=== PATIENT | male | born 1975 | race Caucasian/White ===

== ENCOUNTER 2020-01-07 10:49 | Emergency (ER) | payer OTHER, SELFPAY ==
[2020-01-07] VITALS (9 sets, daily range): BP systolic 121–158; BP diastolic 78–93; PULSE 53–70; RESP 16; TEMP 36.5; O2SAT 100; BMI 21.7
--- NOTE | 2020-01-07 11:38 | XR_ITS ---
EXAMINATION: XR CHEST CLINICAL INFORMATION: Dizziness COMPARISON: Chest x-ray March 2019 TECHNIQUE: Frontal view of the chest was obtained. FINDINGS: No significant abnormality is noted involving the heart, lungs, mediastinum, bony thorax or soft tissues. XR/XR chest 1V IMPRESSION: Unremarkable examination.
--- NOTE | 2020-01-07 11:38 | ECG_ITS ---
Test Reason : DIZZINESS Blood Pressure : / mmHG Vent. Rate : 062 BPM Atrial Rate : 062 BPM P-R Int : 162 ms QRS Dur : 084 ms QT Int : 430 ms P-R-T Axes : 083 009 036 degrees QTc Int : 436 ms Sinus rhythm with frequent Premature ventricular complexes Abnormal ECG When compared with ECG of 06-APR-2019 07:39, Premature ventricular complexes are now Present Heart rate has decreased Referred By: Esther Fong Electronically Signed By:MAXIME CALDERA MD
--- NOTE | 2020-01-07 11:39 | CT_ITS ---
EXAMINATION: CT HEAD WITHOUT CONTRAST CLINICAL INFORMATION: Dizziness COMPARISON: None TECHNIQUE: Contiguous axial imaging was performed from the skull base to vertex without intravenous administration of contrast. This CT examination was performed using dose optimization techniques as appropriate, variously including the following: *Automated exposure control *Adjustment of mA and/or kV according to patient size (this includes techniques or standardized protocols for targeted exams where dose is matched to indication/reason for exam; i.e. extremities or head) *Use of iterative reconstruction technique DLP: 847 mGy-cm FINDINGS: There is no evidence of acute intracranial hemorrhage or territorial infarction. No abnormal mass effect or midline shift is seen. Gregorio to white matter differentiation is well preserved. No extra-axial fluid collections are identified. The ventricles are normal in size. There is no abnormal attenuation within the brain parenchyma. The osseous structures and soft tissues are normal. The mastoid air cells and visualized portions of the paranasal sinuses are well aerated. CT/CT head/brain wo con IMPRESSION: No acute intracranial pathology.
[2020-01-07 11:52] LABS: Glucose, Whole Blood 99 mg/dL (60-115)
--- NOTE | 2020-01-07 11:55 | PC.NURSE ---
SEEN BY PROVIDER. LABS, POC AND UA DONE. EKG DONE. OFF UNIT TO CT AND RAD
[2020-01-07 11:58] LABS: MANUAL DIFF FLAG NO
[2020-01-07 12:00] LABS: Basophils Percent Auto 0.3 % (0-2); Eosinophils Absolute Auto 0.1 X10*3/uL (0.0-0.4); Eosinophils Percent Auto 0.9 % (0-4); Hematocrit 43.9 % (42-52); Hemoglobin 14.8 g/dl (14.0-18.0); Imm Gran Abs Auto 0.02 X10*3/uL (0.00-0.03); Imm Gran Pct Auto 0.2 % (0.0-0.4); Lymphocytes Absolute Auto 1.5 X10*3/uL (1.2-4.9); Mean Corpuscular HGB Conc 33.7 g/dl (31.0-36.0); Mean Corpuscular Hemoglobin 31.8 pg (27.0-33.0); Mean Corpuscular Volume 94.2 fL (80-98); Mean Platelet Volume 9.8 fL (9.4-12.4); Monocytes Absolute Auto 0.5 X10*3/uL (0.1-1.2); Monocytes Percent Auto 5.8 % (2-11); Neutrophils Absolute Auto 6.6 X10*3/uL (2.0-8.3); Neutrophils Percent Auto 75.8 % (45-73); Platelet Count 189 X10*3/uL (160-400); Red Blood Count 4.66 X10*6/uL (4.60-5.80); Red Cell Distribution Width 12.9 % (11.0-16.0); White Blood Count 8.7 X10*3/uL (4.8-10.8)
[2020-01-07 12:01] LABS: Glucose Urine UA NEG (NEG); Leukocyte Esterase Urine NEG (NEG); Nitrite Urine NEG (NEG); Urine Blood NEG (NEG); Urine Ketones NEG (NEG); Urine Protein NEG (NEG-TRACE)
[2020-01-07 12:02] LABS: Appearance Urine CLEAR; Color Urine STRAW
[2020-01-07] MEDS: 0.9 % Sodium Chloride 1,000 ML 999 ML IVCONT (12:09)
[2020-01-07] MEDS: Meclizine HCl 25 MG TABLET 50 MG PO (12:09)
--- NOTE | 2020-01-07 12:10 | PC.NURSE ---
IV EST 20 G L AC. 1 LITER NS UP. MECLIZINE PER ORDERS.
[2020-01-07 12:18] LABS: Prothrombin Time 11.7 SEC (10.8-13.0)
[2020-01-07 12:27] LABS: Troponin-I High Sensitivity < 3.5 ng/L (<3.5-35.0)
--- NOTE | 2020-01-07 12:32 | ED.DIZZY ---
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 He reports he had to hold on to the wall so he wouldn't fall. Reports the dizziness is worse with changing in position. Reports the dizziness is somewhat improved with sitting down not moving. Denies recent head injury. Denies any other complaints or concerns at this time. Denies recent alcohol or drug usage. Related Data Allergies Allergy/AdvReac Type Severity Reaction Status Date / Time No Known Allergies Allergy Verified 01/07/20 11:05 Review of Systems Review of Systems: Constitutional : No Fever, No Chills, No Night Sweats, No Fatigue, No Malaise ENT/Mouth : No Ear Pain, No Nasal Congestion, No Sinus Pain, No sore throat, No Rhinorrhea Eyes: No Eye Pain, No Swelling, No Redness, No Foreign Body, No Discharge, No Vision Changes Cardiovascular : No Chest Pain, No SOB, No Dyspnea on Exertion, No Orthopnea, No Palpitations Respiratory : No Cough, No Sputum, No Wheezing, No Dyspnea Gastrointestinal : No Nausea, No Vomiting, No Diarrhea, No Constipation, No abdominal Pain, No Hematochezia, No Melena Genitourinary : No Dysuria, No Urinary Frequency, No Urinary Incontinence, No Urgency, No Flank Pain Musculoskeletal : No joint pain, No Myalgias Skin : No lacerations Neuro : +Dizziness, No Numbness, No Paresthesias, No Loss of Consciousness, No Headache Yes all other systems are reviewed and are negative [facility] Past Medical History Attestation statement: The following information was validated with the patient. Medical History Anxiety Social History Social History Smoking Status: Current every day smoker Use of substances other than those prescribed or required for medical reasons: No Advance Directives: No Advance Directives Information Provided: Yes Physical Exam Vital Signs: Vital Signs: Last Vital Signs Temp 97.7 F 01/07/20 11:10 Pulse 68 01/07/20 14:19 Resp 16 01/07/20 11:10 BP 121/84 01/07/20 14:19 Pulse Ox 100 01/07/20 11:10 Body Mass Index 21.7 Vital signs have been reviewed as normal and appeared to be correct. Blood pressure normal. Heart rate normal. Respiration rate normal. Temperature normal. Oxygen saturation normal. Appearance: Alert. Oriented X3. No acute distress. Head: Normal external exam. Normocephalic. Atraumatic. Able to rotate head bilaterally. Eyes: PERRLA. EOMI. No nystagmus noted. Conjunctiva and sclera normal. Eyelids normal. Corneal reflex normal. ENT: EAC normal. TM's Normal. Hearing normal. Pharynx normal. Uvula midline. tongue midline. Moist mucous membranes. No trismus noted. No drooling noted. No muffled voice noted. Neck: Normal inspection. Neck supple. FROM. No adenopathy. Thyroid Normal. No meningeal signs. No neck mass noted. CVS: Normal heart rate and rhythm. Heart sound normal. No murmurs noted. Pulses normal throughout. Respiratory: No respiratory distress. Painless inspiration. Breath sounds normal. No wheezes/rales/rhonchi noted. Chest nontender. No accessory muscle usage noted or decreased air movement noted. Abdomen: Soft and nontender. Bowel sounds normal in all 4 quadrants. No distention noted. No organomegaly noted. No visible injury noted. Back: No CVA tenderness. Full range of motion noted. Skin: Skin warm and dry. Normal skin color. Normal skin turgor. No rashes/lesions/lacerations noted. Extremities: No lower extremity edema. Extremities exhibit normal range of motion. Extremities nontender. Able to shrug shoulders bilaterally and keep up against resistance. Neuro: Oriented X 3. No motor deficit. No sensory deficit. Reflexes normal. Moving all extremities. No focal motor deficits. Cranial nerves II-XI intact bilaterally. Facial strength normal. Normal cognition. Speech normal. Gait normal. Strength 5/5 throughout. No pronator drift. No tremor noted. No fasciculations noted. Muscle tone normal throughout. No asterixis noted. Pkjjxk-dk-wlex test normal. Heel to reagan test normal. Tandem gait normal. Does not sway with eyes open. Romberg test negative. Rapid alternating movement upper extremity normal. Rapid alternating movement lower extremity normal. Hand drop from overhead-Mrs. face. No rigidity noted. NIHSS score 0. 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 The dizziness is worse with changing in position. Reports the dizziness is somewhat improved with sitting down not moving. - on exam patient is alert and oriented x 3 not in any acute distress. Vital signs are stable within normal limits. No acute neuro deficits noted. Patient has normal steady gait. NIHSS score 0. TPA not indicated at this time as patient due to symptoms are mild and non disabling. - Concern for CVA vs electrolyte abnormality vs orthostatic hypotension. - Plan: Labs, Orthostatic vitals, UA, EKG, CXR, CT scan of brain. Provide IVF's and 50 mg of meclizine and re-evaluate. Reevaluation(s) Reevaluation #1: - Labs WNL. CXR WL. CT scan of brain WNL. EKG normal sinus rhythm no acute ischemic changes. - orthostatic and vitals patient had a drop from 158/92 to 125/87 and patient reported dizziness therefore positive orthostatics. Patient received 1 L of IV fluids. Repeat orthostatics are now within normal limits and patient reports his dizziness has now resolved. Will DC home with instructions return if any new or worsening symptoms to follow-up with primary care provider. Patient understands agrees the plan. Time: 13:37 [facility] - Dizziness Medical Records Attestation: I reviewed the patient's medical records. Lab Data Attestation: I reviewed the patient's lab results. Result diagrams: 01/07/20 11:49 01/07/20 11:48 Labs: Lab Results 01/07/20 01/07/20 01/07/20 Range/Units 11:39 11:39 11:48 WBC (4.8-10.8) X10*3/uL RBC (4.60-5.80) X10*6/uL Hgb (14.0-18.0) g/dl Hct (42-52) % MCV (80-98) fL MCH (27.0-33.0) pg MCHC (31.0-36.0) g/dl RDW (11.0-16.0) % Plt Count (160-400) X10*3/uL MPV (9.4-12.4) fL Immature Gran % (Auto) (0.0-0.4) % Neut % (Auto) (45-73) % Lymph % (Auto) (20-40) % [place] % (Auto) (2-11) % Eos % (Auto) (0-4) % Baso % (Auto) (0-2) % Lymph # (Auto) (1.2-4.9) X10*3/uL [place] # (Auto) (0.1-1.2) X10*3/uL Eos # (Auto) (0.0-0.4) X10*3/uL Baso # (Auto) (0.0-0.2) X10*3/uL Abs Immat Gran (auto) (0.00-0.03) X10*3/uL Absolute Neuts (auto) (2.0-8.3) X10*3/uL Absolute Nucleated RBC (0.0-0.012) X10*3/uL Nucleated RBC % (auto) (0.0-0.2) /100WBC PT 11.7 (10.8-13.0) SEC INR 1.0 (0.9-1.1) Sodium (135-145) mmol/L Potassium (3.3-5.1) mmol/l Chloride (96-108) mmol/L Carbon Dioxide (22-29) mmol/L Anion Gap (12-20) BUN (9-16) mg/dL Creatinine (0.5-1.4) mg/dL Estim Creat Clear Calc Estimated GFR POC Glucose 99 (60-115) mg/dL Random Glucose (60-115) mg/dL Calcium (8.4-10.2) mg/dL Magnesium (1.6-2.6) mg/dL Total Bilirubin (0.0-1.0) mg/dL Direct Bilirubin (0.0-0.5) mg/dL AST (5-37) U/L ALT (0-40) U/L Alkaline Phosphatase (39-117) U/L Troponin I High Sens (<3.5-35.0) ng/L Total Protein (6.5-8.0) g/dL Albumin (3.5-5.0) g/dL Urine Color STRAW Urine Appearance CLEAR Urine pH 7.0 (5.0-8.0) Ur Specific Harris 1.020 (1.005-1.025) Urine Protein NEG (NEG-TRACE) MG/DL Urine Glucose (UA) NEG (NEG) MG/DL Urine Ketones NEG (NEG) MG/DL Urine Blood NEG (NEG) Urine Nitrite NEG (NEG) Ur Leukocyte Esterase NEG (NEG) 01/07/20 01/07/20 01/07/20 Range/Units 11:48 11:48 11:49 WBC 8.7 (4.8-10.8) X10*3/uL RBC 4.66 (4.60-5.80) X10*6/uL Hgb 14.8 (14.0-18.0) g/dl Hct 43.9 (42-52) % MCV 94.2 (80-98) fL MCH 31.8 (27.0-33.0) pg MCHC 33.7 (31.0-36.0) g/dl RDW 12.9 (11.0-16.0) % Plt Count 189 (160-400) X10*3/uL MPV 9.8 (9.4-12.4) fL Immature Gran % (Auto) 0.2 (0.0-0.4) % Neut % (Auto) 75.8 H (45-73) % Lymph % (Auto) 17.0 L (20-40) % [place] % (Auto) 5.8 (2-11) % Eos % (Auto) 0.9 (0-4) % Baso % (Auto) 0.3 (0-2) % Lymph # (Auto) 1.5 (1.2-4.9) X10*3/uL [place] # (Auto) 0.5 (0.1-1.2) X10*3/uL Eos # (Auto) 0.1 (0.0-0.4) X10*3/uL Baso # (Auto) 0.0 (0.0-0.2) X10*3/uL Abs Immat Gran (auto) 0.02 (0.00-0.03) X10*3/uL Absolute Neuts (auto) 6.6 (2.0-8.3) X10*3/uL Absolute Nucleated RBC 0.000 (0.0-0.012) X10*3/uL Nucleated RBC % (auto) 0.0 (0.0-0.2) /100WBC PT (10.8-13.0) SEC INR (0.9-1.1) Sodium 139 (135-145) mmol/L Potassium 4.3 (3.3-5.1) mmol/l Chloride 106 (96-108) mmol/L Carbon Dioxide 29 (22-29) mmol/L Anion Gap 8 L (12-20) BUN 13 (9-16) mg/dL Creatinine 0.82 (0.5-1.4) mg/dL Estim Creat Clear Calc 115.5 Estimated GFR > 60 POC Glucose (60-115) mg/dL Random Glucose 88 (60-115) mg/dL Calcium 8.8 (8.4-10.2) mg/dL Magnesium 2.1 (1.6-2.6) mg/dL Total Bilirubin 0.9 (0.0-1.0) mg/dL Direct Bilirubin 0.4 (0.0-0.5) mg/dL AST 15 (5-37) U/L ALT 15 (0-40) U/L Alkaline Phosphatase 122 H (39-117) U/L Troponin I High Sens < 3.5 (<3.5-35.0) ng/L Total Protein 6.3 L (6.5-8.0) g/dL Albumin 4.2 (3.5-5.0) g/dL Urine Color Urine Appearance Urine pH (5.0-8.0) Ur Specific Harris (1.005-1.025) Urine Protein (NEG-TRACE) MG/DL Urine Glucose (UA) (NEG) MG/DL Urine Ketones (NEG) MG/DL Urine Blood (NEG) Urine Nitrite (NEG) Ur Leukocyte Esterase (NEG) Imaging Data Chest x-ray: Attestation: I personally reviewed and interpreted this imaging study as follows: Radiologist's impression: FINDINGS: No significant abnormality is noted involving the heart, lungs, mediastinum, bony thorax or soft tissues. XR/XR chest 1V IMPRESSION: Unremarkable examination. CT scan - head: Attestation: I personally reviewed and interpreted this imaging study as follows: My impression: FINDINGS: There is no evidence of acute intracranial hemorrhage or territorial infarction. No abnormal mass effect or midline shift is seen. Gregorio to white matter differentiation is well preserved. No extra-axial fluid collections are identified. The ventricles are normal in size. There is no abnormal attenuation within the brain parenchyma. The osseous structures and soft tissues are normal. The mastoid air cells and visualized portions of the paranasal sinuses are well aerated. CT/CT head/brain wo con IMPRESSION: No acute intracranial pathology. ECG Data Attestation: I personally reviewed and interpreted this ECG as follows: ECG interpretation date: 01/07/20 ECG interpretation time: 11:42 Interpretation: Normal sinus rhythm with a ventricular rate of 62 with frequent PVCs noted with a normal [place] interval normal QRS duration normal QT/QTC interval. No acute ischemic changes. Similar when compared to prior March, Discharge Plan Discharge Clinical Impression: Orthostatic hypotension Patient Disposition: Home, Self-Care Instructions: Hypotension (ED) Referrals: Physician,Unknown [Primary Care Provider] - 2 days (Your primary care provider if you do not have 1 we provided you a sheet with a list of providers you contact) Stand Alone Forms: Work/School Release Print Language: Sami
[2020-01-07 12:33] LABS: Alanine Aminotransferase 15 U/L (0-40); Albumin Level 4.2 g/dL (3.5-5.0); Alkaline Phosphatase 122 U/L (39-117); Anion Gap 8 (12-20); Aspartate Amino Transferase 15 U/L (5-37); Bilirubin Direct 0.4 mg/dL (0.0-0.5); Bilirubin Total 0.9 mg/dL (0.0-1.0); Blood Urea Nitrogen 13 mg/dL (9-16); Calcium 8.8 mg/dL (8.4-10.2); Carbon Dioxide 29 mmol/L (22-29); Chloride 106 mmol/L (96-108); Creatinine Clr Calc Pharmacy 115.5; Estimated Glomerular Filt Rate > 60; Glucose Random 88 mg/dL (60-115); Magnesium 2.1 mg/dL (1.6-2.6); Potassium 4.3 mmol/l (3.3-5.1); Sodium 139 mmol/L (135-145); Total Protein 6.3 g/dL (6.5-8.0)
--- NOTE | 2020-01-07 13:22 | PC.NURSE ---
RESTING IN NAD. AWAITING DISPO. VITALS UPDATED
== END 2020-01-07 14:59 | disposition home or self-care (01) ==
PROVIDERS: Physician Assistant Medical; Emergency Provider Emergency Medicine
DX: I95.1 Orthostatic hypotension (principal); R42 Dizziness and giddiness; F41.1 Generalized anxiety disorder; F43.0 Acute stress reaction; Z71.6 Tobacco abuse counseling; F17.200 Nicotine dependence, unspecified, uncomplicated
CPT/HCPCS: 36415; 70450; 71045; 80048; 80076; 81003; 82947; 83735; 84484; 85025; 85610; 93005; 96360; 99284

== ENCOUNTER 2021-05-27 12:13 | Emergency (ER) | payer OTHER, SELFPAY ==
[2021-05-27 12:26] VITALS: BP 140/88; PULSE 105; RESP 20; TEMP 37.1; O2SAT 100; BMI 25.1
--- NOTE | 2021-05-27 12:33 | ED_ITS ---
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 Mode of arrival: ambulatory Limitations: no limitations History of Present Illness MD elicited complaint: nausea, vomiting and diarrhea Onset (ago): hour(s) (3am today) Description of vomiting: food contents and watery Description of diarrhea: watery Associated nausea: Yes Associated abdominal pain: Yes Location of pain: diffuse Radiation: diffuse Pain consistency: intermittent Severity: moderate Quality: cramping Exacerbating factors: eating Relieving factors: none Context: possible food poisoning (ate [employer] last night) Associated symptoms: fever/chills, loss of appetite, malaise and nausea/vomiting Related Data Previous Rx's Medication Instructions Recorded ondansetron 4 mg disintegrating 4 mg PO Q8H PRN #20 tab 05/27/21 tablet Allergies Allergy/AdvReac Type Severity Reaction Status Date / Time No Known Allergies Allergy Verified 01/07/20 11:05 Review of Systems Review of Systems: Constitutional : No Weight loss, pos Fever, pos Chills ENT/Mouth : No sore throat, No Rhinorrhea Eyes: No Swelling, No Redness Cardiovascular : No Chest Pain, No SOB, NoEdema Respiratory : No Cough, No Sputum, No Wheezing Gastrointestinal : Positive Nausea, Positive Vomiting, positive Diarrhea, positive abdominal Pain, No Hematochezia, No Melena Genitourinary : No Dysuria, No Urinary Frequency, No Hematuria, No Urgency Musculoskeletal : No joint pain, No Myalgias, No Joint Swelling Skin : No Skin Lesions, No rash Neuro : No Weakness, No Numbness, No Dizziness, No Headache Psych : No Anxiety/Panic, No Depression Heme/Lymph: No Bruising, No Lymphadenopathy Endocrine : No Polyuria, No Polydipsia All other systems reviewed and are negative. Gastrointestinal: Gastrointestinal: Reports nausea PMFSH Past Medical History Attestation statement: The following information was validated with the patient. Medical History Anxiety Social History Social History (Updated 05/27/21 @ 12:39 by Coni Oneil DO) Patient Tobacco Use Status: Never used Tobacco Advance Directives: No Advance Directives Information Provided: No Physical Exam Vital Signs: Vital Signs: Last Vital Signs Temp 98.8 F 05/27/21 12:26 Pulse 105 H 05/27/21 12:26 Resp 20 05/27/21 12:26 BP 140/88 H 05/27/21 12:26 Pulse Ox 100 05/27/21 12:26 BMI result Body Mass Index 25.1 Appearance: Alert. Oriented X3. No acute distress. Eyes: Pupils equal, round and reactive to light. ENT: Pharynx mild dry MM Neck: Normal inspection. Neck supple. CVS: Normal heart rate and rhythm. Pulses normal. Respiratory: No respiratory distress. Breath sounds normal. Abdomen: Soft and non-tender. no rebound or guarding Skin: Skin warm and dry. Normal skin color. Normal skin turgor. Extremities: No lower extremity edema. No calf ttp Neuro: Oriented X 3. No motor deficit. No sensory deficit. Course Course Course Narrative: feels better, able to tolerate PO, stable for DC, labs stable MDM - Nausea/Vomiting/Diarrhea MDM Narrative Medical decision making narrative: 46 yo male with hx of anxiety reports eating [employer] last night then woke up around 3am with abdominal cramps n/v and diarrhea. He feels chills and feverish as well as weak. His abdominal exam is benign no localized ttp. Will obtain labs, IVF x 2L, IV medications - suspect food poisoning vs viral syndrome. Dispo per results and findings. Lab Data Result diagrams: 05/27/21 13:13 05/27/21 13:13 Labs: Lab Results 05/27/21 05/27/21 05/27/21 Range/Units 13:13 13:13 13:13 WBC 8.9 (4.8-10.8) X10*3/uL RBC 4.88 (4.60-5.80) X10*6/uL Hgb 15.5 (14.0-18.0) g/dl Hct 45.9 (42.0-52.0) % MCV 94.1 (80.0-98.0) fL MCH 31.8 (27.0-33.0) pg MCHC 33.8 (31.0-36.0) g/dl RDW 13.2 (11.0-16.0) % Plt Count 167 (160-400) X10*3/uL MPV 10.0 (9.4-12.4) fL Immature Gran % (Auto) 0.3 (0.0-0.4) % Neut % (Auto) 87.5 H (45-73) % Lymph % (Auto) 5.4 L (20-40) % [place] % (Auto) 5.4 (2-11) % Eos % (Auto) 1.2 (0-4) % Baso % (Auto) 0.2 (0-2) % Lymph # (Auto) 0.5 L (1.2-4.9) X10*3/uL [place] # (Auto) 0.5 (0.1-1.2) X10*3/uL Eos # (Auto) 0.1 (0.0-0.4) X10*3/uL Baso # (Auto) 0.0 (0.0-0.2) X10*3/uL Abs Immat Gran (auto) 0.03 (0.00-0.03) X10*3/uL Absolute Neuts (auto) 7.8 (2.0-8.3) x10*3/uL Absolute Nucleated RBC 0.000 (0.0-0.012) X10*3/uL Nucleated RBC % (auto) 0.0 (0.0-0.2) /100WBC Sodium 139 (135-145) mmol/L Potassium 4.4 (3.3-5.1) mmol/L Chloride 104 (96-108) mmol/L Carbon Dioxide 27 (22-29) mmol/L Anion Gap 12 (12-20) BUN 19 H (9-16) mg/dL Creatinine 0.75 (0.5-1.4) mg/dL Estim Creat Clear Calc 128.2 Estimated GFR > 60 Random Glucose 86 (60-115) mg/dL Calcium 8.9 (8.4-10.2) mg/dL Magnesium 2.0 (1.6-2.6) mg/dL Total Bilirubin 1.4 H (0.0-1.0) mg/dL Direct Bilirubin 0.6 H (0.0-0.5) mg/dL AST 14 (5-37) U/L ALT 13 (0-40) U/L Alkaline Phosphatase 120 H (39-117) U/L Total Protein 6.3 L (6.5-8.0) g/dL Albumin 4.1 (3.5-5.0) g/dL Lipase 40 (8-78) U/L COVID-19 (HANG) Negative (Negative) COVID-19 Clin Com See Note Influenza Type A (DEVEN) (Negative) Influenza Type B (DEVEN) (Negative) Influenza A & B Note 05/27/21 Range/Units 13:13 WBC (4.8-10.8) X10*3/uL RBC (4.60-5.80) X10*6/uL Hgb (14.0-18.0) g/dl Hct (42.0-52.0) % MCV (80.0-98.0) fL MCH (27.0-33.0) pg MCHC (31.0-36.0) g/dl RDW (11.0-16.0) % Plt Count (160-400) X10*3/uL MPV (9.4-12.4) fL Immature Gran % (Auto) (0.0-0.4) % Neut % (Auto) (45-73) % Lymph % (Auto) (20-40) % [place] % (Auto) (2-11) % Eos % (Auto) (0-4) % Baso % (Auto) (0-2) % Lymph # (Auto) (1.2-4.9) X10*3/uL [place] # (Auto) (0.1-1.2) X10*3/uL Eos # (Auto) (0.0-0.4) X10*3/uL Baso # (Auto) (0.0-0.2) X10*3/uL Abs Immat Gran (auto) (0.00-0.03) X10*3/uL Absolute Neuts (auto) (2.0-8.3) x10*3/uL Absolute Nucleated RBC (0.0-0.012) X10*3/uL Nucleated RBC % (auto) (0.0-0.2) /100WBC Sodium (135-145) mmol/L Potassium (3.3-5.1) mmol/L Chloride (96-108) mmol/L Carbon Dioxide (22-29) mmol/L Anion Gap (12-20) BUN (9-16) mg/dL Creatinine (0.5-1.4) mg/dL Estim Creat Clear Calc Estimated GFR Random Glucose (60-115) mg/dL Calcium (8.4-10.2) mg/dL Magnesium (1.6-2.6) mg/dL Total Bilirubin (0.0-1.0) mg/dL Direct Bilirubin (0.0-0.5) mg/dL AST (5-37) U/L ALT (0-40) U/L Alkaline Phosphatase (39-117) U/L Total Protein (6.5-8.0) g/dL Albumin (3.5-5.0) g/dL Lipase (8-78) U/L COVID-19 (HANG) (Negative) COVID-19 Clin Com Influenza Type A (DEVEN) Negative (Negative) Influenza Type B (DEVEN) Negative (Negative) Influenza A & B Note See Note Discharge Plan Discharge Clinical Impression: Vomiting Qualifiers: Vomiting type: unspecified Nausea presence: with nausea Qualified Code(s): R11.2 - Nausea with vomiting, unspecified Diarrhea Qualifiers: Diarrhea type: unspecified type Qualified Code(s): R19.7 - Diarrhea, uns pecified Abdominal pain Qualifiers: Abdominal location: generalized Qualified Code(s): R10.84 - Generalized abdominal pain Patient Disposition: Home, Self-Care Instructions: Acute Nausea and Vomiting (ED), Acute Diarrhea (ED), Abdominal Pain (ED) Additional Instructions: return to ED for any worsening symptoms or concerns Prescriptions: New ondansetron 4 mg tablet,disintegrating 4 mg PO Q8H PRN (Reason: nausea and vomiting) Qty: 20 0RF Stand Alone Forms: Work/School Release Print Language: Surinamese
[2021-05-27 13:19] LABS: MANUAL DIFF FLAG NO
[2021-05-27 13:25] LABS: Basophils Percent Auto 0.2 % (0-2); Eosinophils Absolute Auto 0.1 X10*3/uL (0.0-0.4); Eosinophils Percent Auto 1.2 % (0-4); Hematocrit 45.9 % (42.0-52.0); Hemoglobin 15.5 g/dl (14.0-18.0); Imm Gran Abs Auto 0.03 X10*3/uL (0.00-0.03); Imm Gran Pct Auto 0.3 % (0.0-0.4); Lymphocytes Absolute Auto 0.5 X10*3/uL (1.2-4.9); Lymphocytes Percent Auto 5.4 % (20-40); Mean Corpuscular HGB Conc 33.8 g/dl (31.0-36.0); Mean Corpuscular Hemoglobin 31.8 pg (27.0-33.0); Mean Corpuscular Volume 94.1 fL (80.0-98.0); Monocytes Absolute Auto 0.5 X10*3/uL (0.1-1.2); Monocytes Percent Auto 5.4 % (2-11); Neutrophils Absolute Auto 7.8 x10*3/uL (2.0-8.3); Neutrophils Percent Auto 87.5 % (45-73); Platelet Count 167 X10*3/uL (160-400); Red Blood Count 4.88 X10*6/uL (4.60-5.80); Red Cell Distribution Width 13.2 % (11.0-16.0); White Blood Count 8.9 X10*3/uL (4.8-10.8)
[2021-05-27] MEDS: Famotidine/PF 20 MG/2 ML VIAL IVPUSH (13:25)
[2021-05-27] MEDS: 0.9 % Sodium Chloride 1,000 ML 999 ML IVCONT (13:25)
[2021-05-27] MEDS: Ketorolac Tromethamine 30 MG/ML VIAL IVPUSH (13:25)
[2021-05-27] MEDS: ondansetron HCL 4 MG/2 ML VIAL IVPUSH (13:25)
[2021-05-27 13:36] LABS: COVID-19 Test Negative (Negative); IDNOW Serial# 16C4AD1C; Influenza A Negative (Negative); Influenza B2 Negative (Negative)
[2021-05-27 13:50] LABS: Alanine Aminotransferase 13 U/L (0-40); Albumin Level 4.1 g/dL (3.5-5.0); Alkaline Phosphatase 120 U/L (39-117); Anion Gap 12 (12-20); Aspartate Amino Transferase 14 U/L (5-37); Bilirubin Direct 0.6 mg/dL (0.0-0.5); Bilirubin Total 1.4 mg/dL (0.0-1.0); Blood Urea Nitrogen 19 mg/dL (9-16); Calcium 8.9 mg/dL (8.4-10.2); Carbon Dioxide 27 mmol/L (22-29); Chloride 104 mmol/L (96-108); Creatinine Clr Calc Pharmacy 128.2; Estimated Glomerular Filt Rate > 60; Glucose Random 86 mg/dL (60-115); Lipase 40 U/L (8-78); Potassium 4.4 mmol/L (3.3-5.1); Sodium 139 mmol/L (135-145); Total Protein 6.3 g/dL (6.5-8.0)
[2021-05-27 15:00] VITALS: BP 117/85; PULSE 77; RESP 18; O2SAT 98
== END 2021-05-27 15:40 | disposition home or self-care (01) ==
PROVIDERS: Emergency Provider Emergency Medicine
DX: R10.84 Generalized abdominal pain (principal); R11.2 Nausea with vomiting, unspecified; R19.7 Diarrhea, unspecified; Z20.822 Contact with and (suspected) exposure to COVID-19
CPT/HCPCS: 80048; 80076; 83690; 83735; 85025; 87502; 87635; 96361; 96374; 96375; 99284; J1885; J2405

== ENCOUNTER 2022-07-31 08:56 | Emergency (ER) | payer MEDICAID, SELFPAY ==
[2022-07-31 09:27] VITALS: BP 129/78; PULSE 68; RESP 18; TEMP 36.6; O2SAT 98; BMI 23.1
--- NOTE | 2022-07-31 11:20 | ED.BACK ---
HPI - Back Pain/Injury General Chief Complaint: Back Pain/Injury Stated Complaint: Back pain Time Seen by Provider: 07/31/22 11:18 Source: patient, RN notes reviewed and old records reviewed Mode of arrival: ambulatory History of Present Illness HPI Narrative: 47-year-old male with past medical history anxiety presenting to the ED complaining of acute on chronic right-sided low back pain radiating down right lower extremity x4 days. Denies known injury/trauma or fall. Pain worse with position changes. Denies fever/chills, numbness, weakness, urine incontinence/retention MD elicited complaint: back pain Related Data Previous Rx's Medication Instructions Recorded ondansetron 4 mg disintegrating 4 mg PO Q8H PRN nausea and 05/27/21 tablet vomiting #20 tabs acetaminophen 500 mg tablet 500 mg PO Q6H PRN fever or pain 07/31/22 (Tylenol Extra Strength) #14 tabs cyclobenzaprine 5 mg tablet 5 mg PO Q8H PRN pain (scale score 07/31/22 7-10) 5 days #14 tabs lidocaine 5 % topical patch 1 patch topical DAILY PRN pain #30 07/31/22 (Lidoderm) ea naproxen 500 mg tablet 500 mg PO BID PRN pain 10 days #20 07/31/22 tabs Allergies Allergy/AdvReac Type Severity Reaction Status Date / Time No Known Allergies Allergy Verified 07/31/22 09:34 Review of Systems Review of Systems: Constitutional: No Fever, No Chills ENT/Mouth: No Ear Pain, No Nasal Congestion, No sore throat Cardiovascular: No Chest Pain, No SOB Respiratory: No Cough, No Sputum Gastrointestinal: No Nausea, No Vomiting, No Diarrhea, No Constipation, No Abdominal pain Genitourinary: No Dysuria, No Urinary Frequency, No Hematuria, No Urinary Incontinence/retention, No Flank Pain Musculoskeletal: +joint pain, No Myalgias, No Joint Swelling Skin: No Skin Lesions, No rash Neuro: No Weakness, No Numbness, +Paresthesias Yes all other systems are reviewed and are negative Constitutional: Constitutional: Reports as per [facility] Past Medical History Attestation statement: The following information was validated with the patient. Source: old records reviewed Medical History Anxiety Social History Social History Patient Tobacco Use Status: Never used Tobacco Advance Directives: No Advance Directives Information Provided: Yes Physical Exam Vital Signs: Vital Signs: Last Vital Signs Temp 97.8 F 07/31/22 09:27 Pulse 68 07/31/22 09:27 Resp 18 07/31/22 09:27 BP 129/78 07/31/22 09:27 Pulse Ox 98 07/31/22 09:27 O2 Del Method Room Air 07/31/22 09:27 BMI result Body Mass Index 23.1 Const: General: cooperative, healthy appearing and no acute distress Orientation/consciousness: patient oriented x3 Limitations: no limitations HEENT: Head: Yes normal to inspection and Yes atraumatic Ears: hearing grossly normal bilaterally General nose exam: Normal external nose present Face and sinus: Yes normal facial exam Eyes: General: appearance normal, both eyes and all related structures EOM: EOMs intact bilaterally Neck: Neck: Yes normal visual inspection and Yes no meningeal signs Resp: Effort & Inspection: normal respiratory effort and no respiratory distress Cardio: Rate: regular rate Heart sounds: S1 normal heart sound present and S2 normal heart sound present GI: Inspection: Yes normal to inspection Palpation (GI): Soft to palpation, nontender, no guarding and not rigid : General: Yes no CVA tenderness Back/Spine/Pelvis: Other: No midline cervical/thoracic/lumbar spinous tenderness/step-off or deformity. + right-sided lumbar paraspinal/MSK tenderness to palpation reproducing subjective complaint Back: no CVA tenderness Skin: Rashes: no rashes Wounds: no wounds Neuro: Other: Strength intact throughout. No saddle anesthesia. Sensation intact to light touch. Neurovascular intact distally General: patient oriented x3, gait normal, tone normal, moves all extremities, no meningeal signs and no focal motor deficits Gait exam (Neuro): Normal gait present Motor exam (neuro): 5/5 motor strength present throughout Extrem: General: Yes normal to inspection Medications Administered Discontinued Medications Generic Name Dose Route Start Last Admin Trade Name Freq PRN Reason Stop Dose Admin Cyclobenzaprine HCl 10 mg 07/31/22 12:00 07/31/22 12:07 Cyclobenzaprine Hcl 10 Mg Tablet PO 07/31/22 12:01 10 mg ONCE ONE Administration Ketorolac Tromethamine 30 mg 07/31/22 12:00 07/31/22 12:08 Ketorolac Tromethamine 30 Mg/Ml Vial IM 07/31/22 12:01 30 mg ONCE ONE Administration Lidocaine 1 patch 07/31/22 12:00 07/31/22 12:08 Lidocaine 4 % Patch Adh..Patch TRANSDERMA 07/31/22 12:01 1 patch ONCE ONE Administration Protocol Medical Decision Making Medical Decision Making MDM Narrative: 47-year-old male with past medical history anxiety presenting to the ED complaining of acute on chronic right-sided low back pain radiating down right lower extremity x4 days. On exam VSS, NAD, nontoxic appearing, abdomen soft/nontender, right-sided paraspinal/MSK tenderness reducible on exam, no midline spinous tenderness or red flag symptoms, ambulating with steady gait, no saddle anesthesia. Concern for MSK pain/strain and sciatica. Lower suspicion for cauda equina/cord compression, fracture, renal stone/pyelo or epidural abscess Plan: Pain control, PCP follow-up Results discussed with patient including worrisome signs and symptoms and strict return precautions, and when to return to the emergency department. They verbalized understanding and feel safe for discharge at this time. Differential Diagnosis Differential Diagnoses: The differential diagnosis associated with the presentation includes As above External Record Review External record reviewed: Inpatient record, Office record, Outpatient record, Prior outpatient labs, Prior outpatient radiology, Primary care record and Outside ED record Tests considered The following testing was considered but not selected: As above Discharge Plan Discharge Clinical Impression: Lumbar radiculopathy, Sciatica Patient Disposition: Home, Self-Care Instructions: Sciatica (ED) Additional Instructions: Your pain is likely musculoskeletal Flexeril is a muscle relaxer, take at night as it makes you drowsy, do not drive, drink alcohol, or operate machinery while taking it Naproxen as an anti-inflammatory / pain medication, take with food Lidoderm patches are numbing patches, apply to painful area In addition take Tylenol at home If symptoms persist or worsen, pain becomes unbearable, you developed urinary retention or incontinence, or weakness return to the ED Es probable que henry dolor sea musculoesquel?brian Flexeril es un relajante muscular, t?shruthi por la noche ya que te adormece, no conduzcas, bebas alcohol ni operes maquinaria mientras lo indira. Naproxeno hasmukh medicamento antiinflamatorio/analg?sico, t?singh con alimentos Los parches de Lidoderm son parches anest?sicos, se aplican en el ?jefferson dolorida Adem?s toyin Tylenol en casa Si los s?ntomas persisten o empeoran, el dolor se vuelve insoportable, desarroll? retenci?n urinaria o incontinencia, o debilidad, regrese al servicio de urgencias. Prescriptions: New acetaminophen [Tylenol Extra Strength] 500 mg tablet 500 mg PO Q6H PRN (Reason: fever or pain) Qty: 14 0RF lidocaine [Lidoderm] 5 % adhesive patch,medicated 1 patch topical DAILY MDD remove after 12 hours PRN (Reason: pain) Qty: 30 0RF Rx Instructions: leave on most painful area for up to 12 hrs naproxen 500 mg tablet 500 mg PO BID PRN (Reason: pain) 10 Days Qty: 20 0RF cyclobenzaprine 5 mg tablet 5 mg PO Q8H PRN (Reason: pain (scale score 7-10)) 5 Days Qty: 14 0RF No Action ondansetron 4 mg tablet,disintegrating 4 mg PO Q8H PRN (Reason: nausea and vomiting) Qty: 20 0RF Referrals: Physician,None [Primary Care Provider] - 5 days Print Language: Bahraini
[2022-07-31] MEDS: Cyclobenzaprine HCl 10 MG TABLET PO (12:07)
[2022-07-31] MEDS: Ketorolac Tromethamine 30 MG/ML VIAL IM (12:08)
[2022-07-31] MEDS: Lidocaine 4 % Patch ADH..PATCH 1 PATCH TRANSDERMA (12:08)
[2022-07-31 13:21] VITALS: BP 138/90; PULSE 53; RESP 16; O2SAT 100
== END 2022-07-31 13:24 | disposition home or self-care (01) ==
PROVIDERS: Emergency Provider Emergency Medicine
DX: M54.16 Radiculopathy, lumbar region (principal); M54.41 Lumbago with sciatica, right side
CPT/HCPCS: 96372; 99284; J1885

== ENCOUNTER 2023-05-31 20:13 | Emergency (ER) | payer MEDICAID, SELFPAY ==
--- NOTE | ~2023-05-31 | CT_ITS ---
EXAMINATION: CT HEAD WITHOUT CONTRAST (STROKE PROTOCOL) CLINICAL INFORMATION: Stroke protocol. Sudden onset dizziness. Rule out posterior CVA. COMPARISON: CT head dated 01/07/2020. TECHNIQUE: Contiguous axial imaging was performed from the skull base to vertex without intravenous administration of contrast. This CT examination was performed using dose optimization techniques as appropriate, variously including the following: *Automated exposure control *Adjustment of mA and/or kV according to patient size (this includes techniques or standardized protocols for targeted exams where dose is matched to indication/reason for exam; i.e. extremities or head) *Use of iterative reconstruction technique DLP: 749 mGy-cm FINDINGS: There is no intracranial hemorrhage. There is a chronic lacunar infarction within the anterior aspect of the right lemos radiata. There is no evidence of acute/subacute cerebral or cerebellar infarction. There is no midline shift, mass effect, or extra-axial fluid collection. Ventricular size is normal. The orbits are symmetric and within normal limits. The calvarium is intact. The mastoid air cells are clear. There is a small mucosal retention cyst within the anterior aspect of the right maxillary sinus. CT/CT head for stroke IMPRESSION: No acute intracranial pathology. There is a chronic lacunar infarction within the anterior aspect of the right lemos radiata. This critical result was discussed with Dr Farnsworth at 10:03 PM hours on 05/31/2023. It was ascertained that the content and urgency of the report was understood at the time of direct communication.
--- NOTE | ~2023-05-31 | CT_ITS ---
EXAMINATION: CT ANGIOGRAM HEAD CT ANGIOGRAM NECK CLINICAL INFORMATION: Reason for Exam 4 hrs ago, sudden dizziness, r/o posterior CVA COMPARISON: Same-day CT head TECHNIQUE: Initial noncontrast manager compliance imaging of the head and neck was performed. Comparison is made with noncontrast head CT from earlier today. Test bolus sequences followed by intravenous administration 75 mL of Omnipaque 350. Helical imaging was performed in the axial plane from the aortic arch to the skull vertex. Delayed postcontrast imaging of the head was also performed. The data was processed at the medicine technologist's workstation for generation of MIP sequences. Angled MIPs and volume rendered reformatted images were also generated at an offline 3D workstation. Stenoses are assessed in accordance with Jessica et al. Quantification of Carotid Stenosis on CT Angiography. AJR 2006. 27(1):13-19. This CT examination was performed using dose optimization techniques as appropriate, variously including the following: *Automated exposure control *Adjustment of mA and/or kV according to patient size (this includes techniques or standardized protocols for targeted exams where dose is matched to indication/reason for exam; i.e. extremities or head) *Use of iterative reconstruction technique DLP: 1612.07 mGy-cm mGy-cm FINDINGS: CT HEAD: Chronic lacunar infarction the right frontal lobe. No abnormal intracranial enhancement is visualized. Please see separately dictated head CT for additional intracranial findings. CTA HEAD: Anterior circulation: Right internal carotid artery: Atherosclerosis without flow-limiting stenosis. Right middle cerebral artery: No hemodynamically significant stenosis. Right anterior cerebral artery: No hemodynamically significant stenosis. Left internal carotid artery: Atherosclerosis without flow-limiting stenosis. Left middle cerebral artery: No hemodynamically significant stenosis. Left anterior cerebral artery: Diminutive A1 segment. Posterior circulation: Right vertebral artery: No hemodynamically significant stenosis. Left vertebral artery: No hemodynamically significant stenosis. Basilar artery: No hemodynamically significant stenosis. Right posterior cerebral artery: origin. Patent. Left posterior cerebral artery: origin. Patent. No high flow vascular malformation or significant aneurysmal dilatation is visualized. The major dural venous sinuses are grossly within normal limits given arterial technique. CTA NECK: Aortic arch: Normal anatomy. Right common carotid artery: No hemodynamically significant stenosis. Right proximal internal carotid artery: No hemodynamically significant stenosis. Right mid/distal internal carotid artery: No hemodynamically significant stenosis. Left common carotid artery: No hemodynamically significant stenosis. Left proximal internal carotid artery: No hemodynamically significant stenosis. Left mid/distal internal carotid artery: No hemodynamically significant stenosis. Right vertebral artery: No hemodynamically significant stenosis. Left vertebral artery: No hemodynamically significant stenosis. CT NECK: Scattered emphysematous changes at the lung apices. CT/CT angio head neck stroke IMPRESSION: CTA NECK: No hemodynamically significant stenosis. CTA HEAD: No proximal vessel occlusion or high-grade stenosis. This critical result was discussed with Dr. Farnsworth at 11:27 on 05/31/2023 and it was ascertained that the content and urgency of the report was understood at the time of direct communication.
[2023-05-31 20:59] VITALS: BP 133/87; PULSE 64; RESP 18; O2SAT 98; BMI 24.2
[2023-05-31 21:14] LABS: Glucose, Whole Blood 95 mg/dL (60-115)
--- NOTE | 2023-05-31 21:17 | ECG_ITS ---
Test Reason : DIZZINESS Blood Pressure : / mmHG Vent. Rate : 056 BPM Atrial Rate : 056 BPM P-R Int : 152 ms QRS Dur : 084 ms QT Int : 414 ms P-R-T Axes : 079 028 018 degrees QTc Int : 399 ms Sinus bradycardia Otherwise normal ECG When compared with ECG of 07-JAN-2020 11:42, Premature ventricular complexes are no longer Present Referred By: Meghan Farnsworth Electronically Signed By:MATT TERRELL MD
--- NOTE | 2023-05-31 21:22 | ED_ITS ---
HPI - Dizziness General Chief Complaint: Dizziness Stated Complaint: dizzinness, trembles, unable to stand Time Seen by Provider: 05/31/23 21:17 Source: patient Mode of arrival: ambulatory Limitations: no limitations History of Present Illness HPI Narrative: Patient comes to the emergency room complaining of sudden onset heaviness in both upper and lower extremities, feeling dizzy, patient explaining dizziness as he was about to pass out, but did not. Patient denies any chest pain, palpitations or shortness of breath. Patient states this happened approximately 4-1/2 hours ago. Patient denies alcohol or drug use. Patient states that he still feels heavy throughout his body. Related Data Previous Rx's ?Medication ?Instructions ?Recorded ondansetron 4 mg disintegrating 4 mg PO Q8H PRN nausea and 05/27/21 tablet vomiting #20 tabs acetaminophen 500 mg tablet 500 mg PO Q6H PRN fever or pain 07/31/22 (Tylenol Extra Strength) #14 tabs cyclobenzaprine 5 mg tablet 5 mg PO Q8H PRN pain (scale score 07/31/22 7-10) 5 days #14 tabs lidocaine 5 % topical patch 1 patch topical DAILY PRN pain #30 07/31/22 (Lidoderm) ea naproxen 500 mg tablet 500 mg PO BID PRN pain 10 days #20 07/31/22 tabs Allergies Allergy/AdvReac Type Severity Reaction Status Date / Time No Known Allergies Allergy Verified 05/31/23 21:03 Review of Systems 2 Review of Systems: Constitutional : No Weight loss, No Fever, No Chills, No Night Sweats, No Fatigue, No Malaise ENT/Mouth : No Hearing loss, No Ear Pain, No Nasal Congestion, No Sinus Pain, No Hoarseness, No sore throat, No Rhinorrhea, No Swallowing Difficulty Eyes: No Eye Pain, No Swelling, No Redness, No Foreign Body, No Discharge, No Vision Changes Cardiovascular : No Chest Pain, No SOB, No Dyspnea on Exertion, No Orthopnea, No Edema, No Palpitations Respiratory : No Cough, No Sputum, No Wheezing, No Smoke Exposure, No Dyspnea Gastrointestinal : No Nausea, No Vomiting, No Diarrhea, No Constipation, No abdominal Pain, No Hematochezia, No Melena Genitourinary : no irregular bleeding, No Dysuria, No Urinary Frequency, No Hematuria, No Urinary Incontinence, No Urgency, No Flank Pain, No Urinary Flow Changes, No Hesitancy Musculoskeletal : No joint pain, No Myalgias, No Joint Swelling Skin : No Skin Lesions, No rash Neuro : Complaining of diffuse weakness which self resolved,, No Numbness, No Paresthesias, No Loss of Consciousness, No Dizziness, No Headache Psych : No Anxiety/Panic, No Depression, No SI/HI/AH/VH, No Social Issues, Heme/Lymph: No Bruising, No Bleeding,No Lymphadenopathy Endocrine : No Polyuria, No Polydipsia, No Temperature Intolerance [facility] Past Medical History Medical History Anxiety Social History Social History Alcohol intake: never Patient Tobacco Use Status: Never used Tobacco Smoked in Last 30 Days: Yes Use of substances other than those prescribed or required for medical reasons: No Advance Directives: No Advance Directives Information Provided: No Physical Exam 2 Vital Signs: Vital Signs: Last Vital Signs Temp 98.5 F 05/31/23 22:12 Pulse 68 06/01/23 00:14 Resp 14 06/01/23 00:14 BP 127/84 06/01/23 00:14 Pulse Ox 98 06/01/23 00:14 O2 Del Method Room Air 06/01/23 00:14 BMI result Body Mass Index 24.2 Const: Other: Appearance: Alert. Oriented X3. No acute distress. Eyes: Pupils equal, round and reactive to light. ENT: Pharynx normal. Neck: Normal inspection. Neck supple. No lymph nodes noted. No crepitus CVS: Normal heart rate and rhythm. Pulses normal. Normal S1 and S2 Respiratory: No respiratory distress. Breath sounds normal. No Wheezing. No rales Abdomen: Soft and nontender. No rigidity. No distention. Skin: Skin warm and dry. Normal skin color. Normal skin turgor. Extremities: No lower extremity edema. No Lacerations. No Rash Neuro: Oriented X 3. No motor deficit. No sensory deficit. Moving all extremities. No slurred speech. CN 2 through 12 grossly intact. NIH score 0. Patient has good truncal stability, patient able to walk with normal gait Psych: calm, cooperative, normal affect NIH Stroke Scale Internal: Initial- Upon Arrival Level of Consciousness: Alert Level of Consciousness Questions: Answers both questions correctly Level of Consciousness Commands: Performs both tasks correctly Best Gaze: Normal Visual: No visual loss Facial Palsy: Normal Motor Arm (Right): No drift Motor Arm (Left): No drift Motor Leg (Right): No drift Motor Leg (Left): No drift Limb Ataxia: Absent Sensory: Normal Best Language: No aphasia Dysarthia: Normal Extinction and Inattention: No abnormality Score: 0 Medications Administered Discontinued Medications Generic Name Dose Route Start Last Admin Trade Name Marjorie PRN Reason Stop Dose Admin Diazepam 2 mg 05/31/23 21:19 05/31/23 21:34 Diazepam 2 Mg Tablet PO 05/31/23 21:20 2 mg ONCE ONE Administration Sodium Chloride 1,000 mls @ 999 mls/hr 05/31/23 21:17 05/31/23 21:35 Ns IVCONT 05/31/23 22:17 999 mls/hr .Q1H1M ONE Administration Iohexol 75 ml 05/31/23 22:12 05/31/23 22:12 Iohexol 350 Mg/Ml 100 Ml Infus..Btl IV 05/31/23 22:13 75 ml ONCE ONE Administration Meclizine HCl 50 mg 05/31/23 21:19 05/31/23 21:33 Meclizine Hcl 25 Mg Tablet PO 05/31/23 21:20 50 mg ONCE ONE Administration Medical Decision Making Medical Decision Making MDM Narrative: -my interpretation of labs: Normal hematology, normal chemistry, normal troponin, urine toxicology, urinalysis -my interpretation of EKG: Normal sinus rhythm, heart rate 56, no ST segment depression or elevation, no T-wave inversion, QTC 399 -interpretation of CT and CTA: No intracranial bleed, no obvious large vessel occlusion -I discussed the radiology reports with our radiologists, confirmed that there is no intracranial abnormality, no large vessel occlusion. Patient has an old lacunar infarct. Discussed with the patient, states that he has never had any stroke-like symptoms in the past. Patient admits that he smokes 2 packs per day. Counseled patient on smoking cessation. -patient states that he feels much better. Patient was ambulated in the emergency room, has normal gait -patient's description of symptoms do not match any specific neurologic territory . Patient instructed to follow-up with his primary care physician. -orthostatic vitals negative Differential Diagnosis Differential Diagnoses: The differential diagnosis associated with the presentation includes (Vasovagal near syncope, orthostatic hypotension, TIA, CVA) Admission/Observation Consideration of admission/observation: Escalation of care including admission/observation considered (Given patient's history and presentation, admission was considered) Lab Data MDM Lab Attestation statement: I reviewed the patient's lab results. 05/31/23 21:21 05/31/23 21:21 Labs: Lab Results 05/31/23 05/31/23 05/31/23 Range/Units 21:10 21:21 22:14 WBC 9.1 (4.8-10.8) X10*3/uL RBC 4.62 (4.60-5.80) X10*6/uL Hgb 15.2 (14.0-18.0) g/dl Hct 43.1 (42.0-52.0) % MCV 93.3 (80.0-98.0) fL MCH 32.9 (27.0-33.0) pg MCHC 35.3 (31.0-36.0) g/dl RDW 13.3 (11.0-16.0) % Plt Count 204 (160-400) X10*3/uL MPV 10.1 (9.4-12.4) fL Immature Gran % (Auto) 0.2 (0.0-0.4) % Neut % (Auto) 61.7 (45-73) % Lymph % (Auto) 26.4 (20-40) % [place] % (Auto) 9.6 (2-11) % Eos % (Auto) 1.8 (0-4) % Baso % (Auto) 0.3 (0-2) % Lymph # (Auto) 2.4 (1.2-4.9) X10*3/uL [place] # (Auto) 0.9 (0.1-1.2) X10*3/uL Eos # (Auto) 0.2 (0.0-0.4) X10*3/uL Baso # (Auto) 0.0 (0.0-0.2) X10*3/uL Abs Immat Gran (auto) 0.02 (0.00-0.03) X10*3/uL Absolute Neuts (auto) 5.6 (2.0-8.3) x10*3/uL Absolute Nucleated RBC 0.000 (0.0-0.012) X10*3/uL Nucleated RBC % (auto) 0.0 (0.0-0.2) /100WBC PT 11.8 (11.1-13.3) SEC INR 1.0 (0.9-1.1) Sodium 139 (135-145) mmol/L Potassium 4.0 (3.3-5.1) mmol/L Chloride 105 (96-108) mmol/L Carbon Dioxide 27 (22-29) mmol/L Anion Gap 11 L (12-20) BUN 14 (9-16) mg/dL Creatinine 0.80 (0.5-1.4) mg/dL Estim Creat Clear Calc 121.2 Estimated GFR > 60 POC Glucose 95 (60-115) mg/dL Random Glucose 102 (60-115) mg/dL Calcium 8.9 (8.4-10.2) mg/dL Magnesium 2.3 (1.6-2.6) mg/dL Total Bilirubin 0.7 (0.0-1.0) mg/dL Direct Bilirubin 0.3 (0.0-0.5) mg/dL AST 15 (5-37) U/L ALT 14 (0-40) U/L Alkaline Phosphatase 130 H (39-117) U/L Troponin I High Sens < 2.7 (<3.5-35.0) ng/L Total Protein 6.4 L (6.5-8.0) g/dL Albumin 4.1 (3.5-5.0) g/dL Lipase 21 (8-78) U/L Urine Color Yellow Urine Appearance Clear Urine pH 7.0 (5.0-9.0) Ur Specific [place] 1.020 (1.005-1.025) Urine Protein Negative (Neg-Trace) mg/dL Urine Glucose (UA) Negative (Negative) mg/dL Urine Ketones Negative (Negative) mg/dL Urine Blood Negative (Negative) Urine Nitrite Negative (Negative) Ur Leukocyte Esterase Negative (Negative) Urine Opiates Screen Not Detected (Not Detect) Urine Fentanyl Screen Not Detected (Not Detect) Ur Barbiturates Screen Not Detected (Not Detect) Ur Phencyclidine Scrn Not Detected (Not Detect) Ur Amphetamines Screen Not Detected (Not Detect) U Benzodiazepines Scrn Not Detected (Not Detect) Urine Cocaine Screen Not Detected (Not Detect) U Marijuana (THC) Screen Not Detected (Not Detect) Ethyl Alcohol < 10 mg/dL Independent Interpretation I performed an independent interpretation of an: CT Scan Radiology Impression Discussion of test interpretation with radiology: I have reviewed the radiologist's reading. Radiologist Impression: CT HEAD: Chronic lacunar infarction the right frontal lobe. No abnormal intracranial enhancement is visualized. Please see separately dictated head CT for additional intracranial findings. CTA HEAD: Anterior circulation: Right internal carotid artery: Atherosclerosis without flow-limiting stenosis. Right middle cerebral artery: No hemodynamically significant stenosis. Right anterior cerebral artery: No hemodynamically significant stenosis. Left internal carotid artery: Atherosclerosis without flow-limiting stenosis. Left middle cerebral artery: No hemodynamically significant stenosis. Left anterior cerebral artery: Diminutive A1 segment. Posterior circulation: Right vertebral artery: No hemodynamically significant stenosis. Left vertebral artery: No hemodynamically significant stenosis. Basilar artery: No hemodynamically significant stenosis. Right posterior cerebral artery: origin. Patent. Left posterior cerebral artery: origin. Patent. No high flow vascular malformation or significant aneurysmal dilatation is visualized. The major dural venous sinuses are grossly within normal limits given arterial technique. CTA NECK: Aortic arch: Normal anatomy. Right common carotid artery: No hemodynamically significant stenosis. Right proximal internal carotid artery: No hemodynamically significant stenosis. Right mid/distal internal carotid artery: No hemodynamically significant stenosis. Left common carotid artery: No hemodynamically significant stenosis. Left proximal internal carotid artery: No hemodynamically significant stenosis. Left mid/distal internal carotid artery: No hemodynamically significant stenosis. Right vertebral artery: No hemodynamically significant stenosis. Left vertebral artery: No hemodynamically significant stenosis. CT NECK: Scattered emphysematous changes at the lung apices. CT/CT angio head neck stroke IMPRESSION: CTA NECK: No hemodynamically significant stenosis. CTA HEAD: No proximal vessel occlusion or high-grade stenosis. Critical Care Time Critical Care Time Critical Care Time: Yes Total Critical Care Time: 60 Attestation: I have personally provided critical care time. Time includes review of lab data, radiology results, discussion with consultants, and monitoring for potential decompensation. Intervention performed as documented. Discharge Plan Discharge Clinical Impression: Near syncope Patient Disposition: Home, Self-Care Instructions: Near Syncope (ED), How to Stop Smoking (ED) Additional Instructions: Please follow-up with your primary care physician tomorrow. If you have any worsening or new symptoms, please return to the emergency room or call 911 Prescriptions: No Action ondansetron 4 mg tablet,disintegrating 4 mg PO Q8H PRN (Reason: nausea and vomiting) Qty: 20 0RF acetaminophen [Tylenol Extra Strength] 500 mg tablet 500 mg PO Q6H PRN (Reason: fever or pain) Qty: 14 0RF lidocaine [Lidoderm] 5 % adhesive patch,medicated 1 patch topical DAILY MDD remove after 12 hours PRN (Reason: pain) Qty: 30 0RF Rx Instructions: leave on most painful area for up to 12 hrs naproxen 500 mg tablet 500 mg PO BID PRN (Reason: pain) 10 Days Qty: 20 0RF cyclobenzaprine 5 mg tablet 5 mg PO Q8H PRN (Reason: pain (scale score 7-10)) 5 Days Qty: 14 0RF Print Language: Welsh
[2023-05-31 21:27] LABS: MANUAL DIFF FLAG NO
[2023-05-31 21:28] LABS: Basophils Percent Auto 0.3 % (0-2); Eosinophils Absolute Auto 0.2 X10*3/uL (0.0-0.4); Eosinophils Percent Auto 1.8 % (0-4); Hematocrit 43.1 % (42.0-52.0); Hemoglobin 15.2 g/dl (14.0-18.0); Imm Gran Abs Auto 0.02 X10*3/uL (0.00-0.03); Imm Gran Pct Auto 0.2 % (0.0-0.4); Lymphocytes Absolute Auto 2.4 X10*3/uL (1.2-4.9); Lymphocytes Percent Auto 26.4 % (20-40); Mean Corpuscular HGB Conc 35.3 g/dl (31.0-36.0); Mean Corpuscular Hemoglobin 32.9 pg (27.0-33.0); Mean Corpuscular Volume 93.3 fL (80.0-98.0); Mean Platelet Volume 10.1 fL (9.4-12.4); Monocytes Absolute Auto 0.9 X10*3/uL (0.1-1.2); Monocytes Percent Auto 9.6 % (2-11); Neutrophils Absolute Auto 5.6 x10*3/uL (2.0-8.3); Neutrophils Percent Auto 61.7 % (45-73); Platelet Count 204 X10*3/uL (160-400); Red Blood Count 4.62 X10*6/uL (4.60-5.80); Red Cell Distribution Width 13.3 % (11.0-16.0); White Blood Count 9.1 X10*3/uL (4.8-10.8)
[2023-05-31 21:33] LABS: Prothrombin Time 11.8 SEC (11.1-13.3)
[2023-05-31] MEDS: Meclizine HCl 25 MG TABLET 50 MG PO (21:33)
[2023-05-31] MEDS: diazePAM 2 MG TABLET PO (21:34)
[2023-05-31] MEDS: 0.9 % Sodium Chloride 1,000 ML 999 ML IVCONT (21:35)
[2023-05-31 21:43] LABS: Alanine Aminotransferase 14 U/L (0-40); Albumin Level 4.1 g/dL (3.5-5.0); Alkaline Phosphatase 130 U/L (39-117); Anion Gap 11 (12-20); Aspartate Amino Transferase 15 U/L (5-37); Bilirubin Direct 0.3 mg/dL (0.0-0.5); Bilirubin Total 0.7 mg/dL (0.0-1.0); Blood Urea Nitrogen 14 mg/dL (9-16); Calcium 8.9 mg/dL (8.4-10.2); Carbon Dioxide 27 mmol/L (22-29); Chloride 105 mmol/L (96-108); Creatinine Clr Calc Pharmacy 121.2; Estimated Glomerular Filt Rate > 60; Ethanol < 10 mg/dL; Glucose Random 102 mg/dL (60-115); Lipase 21 U/L (8-78); Magnesium 2.3 mg/dL (1.6-2.6); Sodium 139 mmol/L (135-145); Total Protein 6.4 g/dL (6.5-8.0)
[2023-05-31 21:49] LABS: Troponin-I High Sensitivity < 2.7 ng/L (<3.5-35.0)
[2023-05-31 22:08] VITALS: BP 150/88; PULSE 59
[2023-05-31 22:09] VITALS: BP 151/98; PULSE 69
[2023-05-31 22:11] VITALS: BP 140/87; PULSE 79
[2023-05-31 22:12] VITALS: BP 151/98; PULSE 69; RESP 18; TEMP 36.9; O2SAT 99
[2023-05-31] MEDS: iohexoL 350 MG/ML 100 ML INFUS..BTL 75 ML IV (22:12)
[2023-05-31 22:20] LABS: Appearance Urine Clear; Color Urine Yellow; Glucose Urine UA Negative (Negative); Leukocyte Esterase Urine Negative (Negative); Nitrite Urine Negative (Negative); Urine Blood Negative (Negative); Urine Ketones Negative (Negative); Urine Protein Negative (Neg-Trace)
[2023-05-31 22:29] LABS: Amphetamine Screen Urine Not Detected (Not Detect); Barbiturates, Urine Not Detected (Not Detect); Benzodiazepines Screen Urine Not Detected (Not Detect); Cannabinoid Screen Urine Not Detected (Not Detect); Cocaine Screen Urine Not Detected (Not Detect); Fentanyl, urine Not Detected (Not Detect); Opiate Screen Urine Not Detected (Not Detect); Phencyclidine Screen Urine Not Detected (Not Detect)
[2023-06-01 00:14] VITALS: BP 127/84; PULSE 68; RESP 14; O2SAT 98
[2023-06-01 00:58] VITALS: BP 127/84; PULSE 68; RESP 14; TEMP -17.7; TEMP 0; O2SAT 98
== END 2023-06-01 01:00 | disposition home or self-care (01) ==
PROVIDERS: Emergency Provider Emergency Medicine
DX: R55 Syncope and collapse (principal); F17.200 Nicotine dependence, unspecified, uncomplicated
CPT/HCPCS: 36415; 70450; 70496; 70498; 80048; 80076; 80307; 81003; 82947; 83690; 83735; 84484; 85025; 85610; 93005; 99285; Q9967

== ENCOUNTER → 2023-05-31 21:17 | Outpatient (BNV) | payer MEDICAID, SELFPAY | PROVIDERS: Emergency Provider Emergency Medicine; Visit Provider Internal Medicine Cardiovascular Disease | DX: R00.1 Bradycardia, unspecified (principal) | CPT/HCPCS: 93010 ==

== ENCOUNTER 2023-06-22 19:49 | Emergency (ER) | payer MEDICAID, SELFPAY ==
--- NOTE | ~2023-06-22 | CT_ITS ---
EXAMINATION: CT ABDOMEN AND PELVIS WITHOUT CONTRAST CLINICAL INFORMATION: Left lower abdominal pain COMPARISON: 07/02/2017 TECHNIQUE: Multidetector volumetric imaging was performed from the superior aspect of the liver through the pubic symphysis. Sagittal and coronal reformatted images were obtained on the technologist's workstation. This CT examination was performed using dose optimization techniques as appropriate, variously including the following: *Automated exposure control *Adjustment of mA and/or kV according to patient size (this includes techniques or standardized protocols for targeted exams where dose is matched to indication/reason for exam; i.e. extremities or head) *Use of iterative reconstruction technique DLP: 485 mGy-cm FINDINGS: LUNG BASES: The visualized lung bases are unremarkable. LIVER, GALLBLADDER, AND BILIARY TREE: The liver is normal in size, shape, and attenuation. No focal hepatic lesion or biliary ductal dilatation is present. Gallbladder is contracted and not well evaluated. PANCREAS: Unremarkable. SPLEEN: Unremarkable. ADRENAL GLANDS: Unremarkable. KIDNEYS AND URETERS: No hydronephrosis or obstructing calculus bilaterally. BLADDER: Mildly distended with diffuse mural prominence. GASTROINTESTINAL TRACT: No evidence of bowel obstruction. No significant bowel wall thickening is seen, though evaluation in some segments of the colon is limited due to luminal collapse. The appendix is not clearly identified. No free fluid or free air is seen. ABDOMINAL WALL: No significant hernia is appreciated. LYMPH NODES: No lymphadenopathy is seen, though assessment is limited in the absence of intravenous contrast. VASCULAR: Unremarkable. PELVIC VISCERA: Unremarkable. OSSEOUS STRUCTURES: Scattered endplate osteophytes in the spine. CT/CT abdomen pelvis wo IV con IMPRESSION: Diffuse mural prominence of the urinary bladder, which could be due to underdistention versus cystitis in the proper clinical setting. Correlation with urinalysis is recommended. No additional acute findings identified in the abdomen/pelvis.
[2023-06-22 20:00] VITALS: BP 141/85; PULSE 64; RESP 18; TEMP 36.8; O2SAT 98; BMI 24.3
--- NOTE | 2023-06-22 20:03 | ED.GENADULT ---
HPI - General Adult General Chief complaint: Abdominal Pain Stated complaint: abd pain Time Seen by Provider: 06/22/23 20:48 Source: patient Mode of arrival: ambulatory Limitations: no limitations History of Present Illness HPI narrative: Patient with significant abdominal complaints in the past been having pain in left lower abdomen and mid abdomen for last 3 days status post appendectomy no nausea no vomiting no diarrhea pain got worse today did not eat much does not feel hungry Related Data Previous Rx's ?Medication ?Instructions ?Recorded ondansetron 4 mg disintegrating 4 mg PO Q8H PRN nausea and 05/27/21 tablet vomiting #20 tabs acetaminophen 500 mg tablet 500 mg PO Q6H PRN fever or pain 07/31/22 (Tylenol Extra Strength) #14 tabs cyclobenzaprine 5 mg tablet 5 mg PO Q8H PRN pain (scale score 07/31/22 7-10) 5 days #14 tabs lidocaine 5 % topical patch 1 patch topical DAILY PRN pain #30 07/31/22 (Lidoderm) ea naproxen 500 mg tablet 500 mg PO BID PRN pain 10 days #20 07/31/22 tabs omeprazole 40 mg capsule,delayed 40 mg PO DAILY #30 caps 06/22/23 release Allergies Allergy/AdvReac Type Severity Reaction Status Date / Time No Known Allergies Allergy Verified 06/22/23 20:01 [facility] Past Medical History Medical History Anxiety Social History Social History Alcohol intake: never Patient Tobacco Use Status: Never used Tobacco Smoked in Last 30 Days: No Use of substances other than those prescribed or required for medical reasons: No Advance Directives: No Advance Directives Information Provided: No Physical Exam ED Vital Signs: Vital Signs - 24 hr 06/22/23 20:00 06/22/23 21:40 06/22/23 23:32 Temperature 98.3 F 98.3 F Pulse Rate 64 65 76 Respiratory Rate 18 16 16 Blood Pressure 141/85 H 124/81 122/84 Pulse Oximetry 98 98 97 Oxygen Delivery Method Room Air Room Air Room Air BMI result Body Mass Index 24.3 Course Course Course Narrative: RME performed by Mony Pierce PA-C. Patient is a 48 year old assigned male at presenting to the emergency department with abdominal pain. Detailed physical exam and review of systems are deferred to the orthotic practitioner. Labs and swabs ordered. Patient placed back in the waiting room pending room availability and results. Medications Administered Discontinued Medications Generic Name Dose Route Start Last Admin Trade Name Marjorie PRN Reason Stop Dose Admin Sodium Chloride 1,000 mls @ 999 mls/hr 06/22/23 21:01 06/22/23 22:50 Ns IV 06/22/23 22:01 Infused .Q1H1M ONE Infusion Morphine Sulfate 4 mg 06/22/23 21:02 06/22/23 21:37 Morphine Sulfate 4 Mg/Ml Cartridge IVPUSH 06/22/23 21:03 4 mg ONCE ONE Administration Protocol Ondansetron HCl 4 mg 06/22/23 21:02 06/22/23 21:37 Ondansetron Hcl 4 Mg/2 Ml Vial IVPUSH 06/22/23 21:03 4 mg ONCE ONE Administration Medical Decision Making Medical Decision Making [facility] Narrative: Patient nonspecific abdominal pain workup essentially is negative labs are stable urine is negative for UTI will discharge patient home likely patient has GERD Differential Diagnosis Differential Diagnoses: The differential diagnosis associated with the presentation includes Diverticulitis/pancreatitis/GERD/constipation/UTI Admission/Observation Consideration of admission/observation: Escalation of care including admission/observation considered Lab Data [facility] Lab Attestation statement: I reviewed the patient's lab results. 06/22/23 20:11 06/22/23 20:12 Labs: Lab Results 06/22/23 06/22/23 06/22/23 Range/Units 20:11 20:12 23:03 WBC 8.0 (4.8-10.8) X10*3/uL RBC 4.44 L (4.60-5.80) X10*6/uL Hgb 14.7 (14.0-18.0) g/dl Hct 41.9 L (42.0-52.0) % MCV 94.4 (80.0-98.0) fL MCH 33.1 H (27.0-33.0) pg MCHC 35.1 (31.0-36.0) g/dl RDW 13.1 (11.0-16.0) % Plt Count 220 (160-400) X10*3/uL MPV 10.0 (9.4-12.4) fL Immature Gran % (Auto) 0.1 (0.0-0.4) % Neut % (Auto) 41.7 L (45-73) % Lymph % (Auto) 44.0 H (20-40) % [place] % (Auto) 9.9 (2-11) % Eos % (Auto) 3.6 (0-4) % Baso % (Auto) 0.7 (0-2) % Lymph # (Auto) 3.5 (1.2-4.9) X10*3/uL [place] # (Auto) 0.8 (0.1-1.2) X10*3/uL Eos # (Auto) 0.3 (0.0-0.4) X10*3/uL Baso # (Auto) 0.1 (0.0-0.2) X10*3/uL Abs Immat Gran (auto) 0.01 (0.00-0.03) X10*3/uL Absolute Neuts (auto) 3.3 (2.0-8.3) x10*3/uL Absolute Nucleated RBC 0.000 (0.0-0.012) X10*3/uL Nucleated RBC % (auto) 0.0 (0.0-0.2) /100WBC Sodium 142 (135-145) mmol/L Potassium 3.9 (3.3-5.1) mmol/L Chloride 108 (96-108) mmol/L Carbon Dioxide 25 (22-29) mmol/L Anion Gap 13 (12-20) BUN 16 (9-16) mg/dL Creatinine 0.85 (0.5-1.4) mg/dL Estim Creat Clear Calc 114.1 Estimated GFR > 60 Random Glucose 107 (60-115) mg/dL Calcium 9.1 (8.4-10.2) mg/dL Magnesium 2.0 (1.6-2.6) mg/dL Total Bilirubin 0.6 (0.0-1.0) mg/dL AST 14 (5-37) U/L ALT 14 (0-40) U/L Alkaline Phosphatase 158 H (39-117) U/L Total Protein 6.8 (6.5-8.0) g/dL Albumin 4.0 (3.5-5.0) g/dL Lipase 26 (8-78) U/L Urine Color Yellow Urine Appearance Clear Urine pH 7.0 (5.0-9.0) Ur Specific [place] 1.020 (1.005-1.025) Urine Protein Negative (Neg-Trace) mg/dL Urine Glucose (UA) Negative (Negative) mg/dL Urine Ketones Negative (Negative) mg/dL Urine Blood Negative (Negative) Urine Nitrite Negative (Negative) Ur Leukocyte Esterase Negative (Negative) Influenza Type A (PCR) NEGATIVE (Negative) Influenza Type B (PCR) NEGATIVE (Negative) RSV RNA Qual (PCR) NEGATIVE (Negative) SARS-CoV-2 RNA (RT-PCR) NEGATIVE (Negative) Independent Interpretation I performed an independent interpretation of an: CT Scan Radiology Impression Discussion of test interpretation with radiology: I have reviewed the radiologist's reading. Discharge Plan Discharge Clinical Impression: Abdominal pain Patient Disposition: Home, Self-Care Instructions: Abdominal Pain (ED) Additional Instructions: Cause of abdominal pain is not clear possible acid reflux Your CT scan of the abdomen is negative for acute Drink plenty of fluids Follow-up with your PCP if any concerns Medicine for acid reflux as prescribed Prescriptions: New omeprazole 40 mg capsule,delayed release(DR/EC) 40 mg PO DAILY Qty: 30 0RF No Action ondansetron 4 mg tablet,disintegrating 4 mg PO Q8H PRN (Reason: nausea and vomiting) Qty: 20 0RF acetaminophen [Tylenol Extra Strength] 500 mg tablet 500 mg PO Q6H PRN (Reason: fever or pain) Qty: 14 0RF lidocaine [Lidoderm] 5 % adhesive patch,medicated 1 patch topical DAILY MDD remove after 12 hours PRN (Reason: pain) Qty: 30 0RF Rx Instructions: leave on most painful area for up to 12 hrs naproxen 500 mg tablet 500 mg PO BID PRN (Reason: pain) 10 Days Qty: 20 0RF cyclobenzaprine 5 mg tablet 5 mg PO Q8H PRN (Reason: pain (scale score 7-10)) 5 Days Qty: 14 0RF Print Language: Syriac
[2023-06-22 20:15] LABS: MANUAL DIFF FLAG NO
[2023-06-22 20:16] LABS: Basophils Absolute Auto 0.1 X10*3/uL (0.0-0.2); Basophils Percent Auto 0.7 % (0-2); Eosinophils Absolute Auto 0.3 X10*3/uL (0.0-0.4); Eosinophils Percent Auto 3.6 % (0-4); Hematocrit 41.9 % (42.0-52.0); Hemoglobin 14.7 g/dl (14.0-18.0); Imm Gran Abs Auto 0.01 X10*3/uL (0.00-0.03); Imm Gran Pct Auto 0.1 % (0.0-0.4); Lymphocytes Absolute Auto 3.5 X10*3/uL (1.2-4.9); Mean Corpuscular HGB Conc 35.1 g/dl (31.0-36.0); Mean Corpuscular Hemoglobin 33.1 pg (27.0-33.0); Mean Corpuscular Volume 94.4 fL (80.0-98.0); Monocytes Absolute Auto 0.8 X10*3/uL (0.1-1.2); Monocytes Percent Auto 9.9 % (2-11); Neutrophils Absolute Auto 3.3 x10*3/uL (2.0-8.3); Neutrophils Percent Auto 41.7 % (45-73); Platelet Count 220 X10*3/uL (160-400); Red Blood Count 4.44 X10*6/uL (4.60-5.80); Red Cell Distribution Width 13.1 % (11.0-16.0)
[2023-06-22 20:40] LABS: Alanine Aminotransferase 14 U/L (0-40); Alkaline Phosphatase 158 U/L (39-117); Anion Gap 13 (12-20); Aspartate Amino Transferase 14 U/L (5-37); Bilirubin Total 0.6 mg/dL (0.0-1.0); Blood Urea Nitrogen 16 mg/dL (9-16); Calcium 9.1 mg/dL (8.4-10.2); Carbon Dioxide 25 mmol/L (22-29); Chloride 108 mmol/L (96-108); Creatinine Clr Calc Pharmacy 114.1; Estimated Glomerular Filt Rate > 60; Glucose Random 107 mg/dL (60-115); Potassium 3.9 mmol/L (3.3-5.1); Sodium 142 mmol/L (135-145); Total Protein 6.8 g/dL (6.5-8.0)
[2023-06-22 20:57] LABS: Influenza A PCR NEGATIVE (Negative); Influenza B PCR NEGATIVE (Negative); Resp Syncy Virus RNA Qual PCR NEGATIVE (Negative); SARS COV2 PCR INHOUSE NEGATIVE (Negative)
[2023-06-22 21:16] LABS: Lipase 26 U/L (8-78)
[2023-06-22] MEDS: ondansetron HCL 4 MG/2 ML VIAL IVPUSH (21:37)
[2023-06-22] MEDS: 0.9 % Sodium Chloride 1,000 ML 999 ML IV (21:37)
[2023-06-22] MEDS: Morphine Sulfate 4 MG/ML CARTRIDGE IVPUSH (21:37)
[2023-06-22 21:40] VITALS: BP 124/81; PULSE 65; RESP 16; O2SAT 98
[2023-06-22 23:10] LABS: Appearance Urine Clear; Color Urine Yellow; Glucose Urine UA Negative (Negative); Leukocyte Esterase Urine Negative (Negative); Nitrite Urine Negative (Negative); Urine Blood Negative (Negative); Urine Ketones Negative (Negative); Urine Protein Negative (Neg-Trace)
[2023-06-22 23:32] VITALS: BP 122/84; PULSE 76; RESP 16; TEMP 36.8; O2SAT 97
[2023-06-23 00:04] VITALS: BP 122/84; PULSE 76; RESP 16; TEMP 36.8; O2SAT 97
== END 2023-06-23 00:06 | disposition home or self-care (01) ==
PROVIDERS: Physician Assistant Medical; Emergency Provider Internal Medicine
DX: R10.32 Left lower quadrant pain (principal); Z98.890 Other specified postprocedural states; Z90.49 Acquired absence of other specified parts of digestive tract
CPT/HCPCS: 0241U; 74176; 80053; 81003; 83690; 83735; 85025; 96361; 96374; 96375; 99284; 99285; J2270; J2405

== ENCOUNTER 2024-05-16 15:36 | Inpatient (IN) | payer MEDICAID, SELFPAY ==
--- NOTE | ~2024-05-16 | MR_ITS ---
CLINICAL HISTORY: Left-sided deficits, ?CVA MR Brain without gadolinium Comparison: CT/SR - CT ANGIO HEAD NECK STROKE - 05/16/24 16:[address]/SR - CT HEAD FOR STROKE - 05/16/24 16:12 EDT Findings: The size and shape of the ventricular system is within normal limits for this patient's age. Mild scattered areas of T2 and FLAIR hyperintensity are seen within the deep white matter. Ribbon like area of acutely restricted diffusion is seen along the gyral surface of the right precentral gyrus at the level of the vertex. This is associated T2 and FLAIR hyperintensity in that area. No other areas of restricted diffusion are identified. No intracranial hemorrhage. No midline shift or mass effect. Visualized flow voids are patent. No calvarial lesions. IMPRESSION: Acutely restricted diffusion within the right prefrontal gyrus without hemorrhagic conversion as discussed above. This document has been electronically signed by: Robert Sánchez MD on 05/16/2024 21:37:26
--- NOTE | ~2024-05-16 | CT_ITS ---
CLINICAL HISTORY: Stroke Protocol, right facial numbness, left upper and lower extremity weak CTA HEAD, bolus contrast injection. 3D reconstructions and MPRs:: Comparison: 05/31/2023 Right Carotid Siphon: Right Anterior Cerebral Artery: A1 and A2 segments are unremarkable. There is peripheral cortical enhancement. Right Middle Cerebral Artery: M1 and M2 segments are unremarkable. There is peripheral cortical enhancement. Right Posterior Cerebral Artery: There is persistent right posterior cerebral artery circulation, a normal variant. P2 segments are unremarkable]. There is peripheral enhancement Left Carotid Siphon: Left Anterior Cerebral Artery: A1 and A2 segments are unremarkable. There is peripheral cortical enhancement. Left Middle Cerebral Artery: M1 and M2 segments are unremarkable. There is peripheral cortical enhancement. Left Posterior Cerebral Artery: There is persistent left posterior cerebral artery circulation, a normal variant. P2 segments are unremarkable]. There is peripheral cortical enhancement. Basilar Artery: Normal Venous drainage: Normal. Impression: No stenosis No signs of aneurysm. No signs of arterial venous malformation. CTA Neck , Bolus contrast injection, 3D reconstructions and MPRs: Comparison: 05/31/2023 Findings: Soft tissues of the neck are unremarkable Superior aorta and branch vessels are unremarkable Right carotid: No stenosis (NASCET) Right vertebral: No stenosis Left Carotid: No stenosis (NASCET) Left Vertebral: No stenosis. Impression: No stenosis No aneurysm or dissection This document has been electronically signed by: Gil Stack MD on 05/16/2024 17:12:21
--- NOTE | ~2024-05-16 | CT_ITS ---
CLINICAL HISTORY: Stroke Protocol CT Head Without Contrast: Comparison: 05/31/2023 Findings: Cortical sulci are symmetric Basal ganglia are unremarkable No shift in midline structures No intraparenchymal bleeding or abnormal extra axial blood fluid collections Normal pituitary size Clear paranasal sinuses Unremarkable orbital structures No depressed fractures Impression: Unremarkable CT of the head. ASPECTS score 10, NORMAL This document has been electronically signed by: Gil Stack MD on 05/16/2024 16:31:43
[2024-05-16 15:51] VITALS: BP 155/78; PULSE 71; RESP 20; TEMP 36.7; O2SAT 98; BMI 27.4
--- NOTE | 2024-05-16 15:52 | ED_ITS ---
HPI - General Adult General Chief complaint: Stroke Stated complaint: left side sleeping? Can't move his arm much Time Seen by Provider: 05/16/24 16:10 Related Data Previous Rx's ?Medication ?Instructions ?Recorded apixaban 5 mg tablet (Eliquis) 5 mg PO BID #180 tabs 05/19/24 aspirin 81 mg tablet,delayed 81 mg PO DAILY #180 tabs 05/19/24 release atorvastatin 20 mg tablet 20 mg PO DAILY #90 tabs 05/19/24 nicotine 14 mg/24 hr daily 14 mg transdermal DAILY #60 ea 05/19/24 transdermal patch Allergies Allergy/AdvReac Type Severity Reaction Status Date / Time No Known Allergies Allergy Verified 05/16/24 15:56 PMFSH Past Medical History Medical History Anxiety Social History Social History Household Members: Family Housing: House Do you presently have visiting nurse or other home services: No Alcohol intake: never Patient Tobacco Use Status: Current everyday Tobacco user Tobacco use type: Cigarette e-Cigarette/Vaping Use: Currently Using service: No Physical Exam ED Vital Signs: BMI result Body Mass Index 27.4 NIH Stroke Scale Time: 15:50 Level of Consciousness: Alert Level of Consciousness Questions: Answers both questions correctly Level of Consciousness Commands: Performs both tasks correctly Best Gaze: Normal Visual: No visual loss Facial Palsy: Normal Motor Arm (Right): No drift Motor Arm (Left): Drift (mild) Motor Leg (Right): No drift Motor Leg (Left): No drift Limb Ataxia: Absent Sensory: Normal Best Language: No aphasia Dysarthia: Normal Extinction and Inattention: No abnormality Score: 1 Course Course Course Narrative: This is an RME performed by Mik Kim CNP: Additional HPI, ROS, PE not included below will be deferred to primary provider. Patient is a 49-year-old male who presents emergency department for evaluation. He reports at 11:00 today he began to feel numbness to his left arm like it was not able to grab anything. About 5 minutes later he developed associated dizziness with numbness to the entirety of his left side. This lasted until approximately 13:00. He reports that the numbness had subsided but continued to feel weak on that side. At 13:00 he felt numbness to the right side of his face and felt weakness to the right eyelid. He additionally admits that over the past few months he has been experiencing ? syncopal episodes, where people are talking to him and suddenly he passes now and does not recall what happened On examination he has a notable weakness to the left upper and left lower extremity, slight drift in the left upper extremity, NIH stroke score of 1. Stroke protocol ordered from triage, addictions counselor assistant and ED attending Dr. Farnsworth made aware Reevaluation(s) Reevaluation #1: see additional note dated 05/16/24 from Nela Farnsworth MD Medications Administered Generic Name Dose Route Start Last Admin Trade Name Freq PRN Reason Stop Dose Admin Acetaminophen 650 mg 05/16/24 19:17 05/17/24 07:15 Acetaminophen 325 Mg Tablet PO 650 mg Q6H PRN Administration Pain, Mild 1-3,fever,headache Apixaban 5 mg 05/18/24 10:30 05/19/24 08:54 Apixaban 5 Mg Tablet PO 5 mg BID RIHC Administration Aspirin 81 mg 05/17/24 09:00 05/19/24 08:55 Aspirin Enteric Coated 81 Mg Tablet. PO 81 mg DAILY RICH Administration Atorvastatin Calcium 20 mg 05/18/24 10:15 05/19/24 08:54 Atorvastatin Calcium 20 Mg Tablet PO 20 mg DAILY RICH Administration Nicotine 14 mg 05/18/24 10:45 05/19/24 08:55 Nicotine 14 Mg Patch.Td24 TRANSDERMA 14 mg DAILY RICH Administration Sodium Chloride 3 ml 05/17/24 00:00 05/19/24 08:55 0.9 % Sodium Chloride Flush 3 Ml Syringe IVFLUSH 3 ml QSHIFT RICH Administration Discontinued Medications Generic Name Dose Route Start Last Admin Trade Name Freq PRN Reason Stop Dose Admin Aspirin 325 mg 05/16/24 17:25 05/16/24 17:36 Aspirin Enteric Coated 325 Mg Tablet. PO 05/16/24 17:26 325 mg ONCE ONE Administration Enoxaparin Sodium 40 mg 05/16/24 20:00 05/17/24 19:33 Enoxaparin Sodium 40 Mg/0.4 Ml Syringe SUBCUT 40 mg Q24H RICH Administration Medical Decision Making Lab Data 05/16/24 16:23 05/16/24 16:23 Labs: Lab Results 03/05/16/24 05/16/24 Range/Units 16:09 16:10 16:23 WBC 6.7 (4.8-10.8) X10*3/uL RBC 4.39 L (4.60-5.80) X10*6/uL Hgb 14.3 (14.0-18.0) g/dl Hct 39.8 L (42.0-52.0) % MCV 90.7 (80.0-98.0) fL MCH 32.6 (27.0-33.0) pg MCHC 35.9 (31.0-36.0) g/dl RDW 13.0 (11.0-16.0) % Plt Count 177 (160-400) X10*3/uL MPV 9.7 (9.4-12.4) fL Immature Gran % (Auto) 0.3 (0.0-0.4) % Neut % (Auto) 51.2 (45-73) % Lymph % (Auto) 35.0 (20-40) % [place] % (Auto) 10.5 (2-11) % Eos % (Auto) 2.4 (0-4) % Baso % (Auto) 0.6 (0-2) % Lymph # (Auto) 2.3 (1.2-4.9) X10*3/uL [place] # (Auto) 0.7 (0.1-1.2) X10*3/uL Eos # (Auto) 0.2 (0.0-0.4) X10*3/uL Baso # (Auto) 0.0 (0.0-0.2) X10*3/uL Abs Immat Gran (auto) 0.02 (0.00-0.03) X10*3/uL Absolute Neuts (auto) 3.4 (2.0-8.3) x10*3/uL Absolute Nucleated RBC 0.000 (0.0-0.012) X10*3/uL Nucleated RBC % (auto) 0.0 (0.0-0.2) /100WBC PT 12.2 (10.9-12.4) SEC Whole Blood PT 13.1 (11.1-13.5) sec INR 1.0 (0.9-1.1) Whole Blood INR 1.1 (0.9-1.1) APTT 35.8 (26.0-36.8) SEC Sodium 139 (135-145) mmol/L Potassium 3.9 (3.3-5.1) mmol/L Chloride 108 (96-108) mmol/L Carbon Dioxide 24 (22-29) mmol/L Anion Gap 11 L (12-20) BUN 13 (9-16) mg/dL Creatinine 0.75 (0.5-1.4) mg/dL Estim Creat Clear Calc 120.3 Estimated GFR > 60 POC Glucose 96 (60-115) mg/dL Random Glucose 83 (60-115) mg/dL Calcium 8.6 (8.4-10.2) mg/dL Troponin I High Sens < 2.7 (<3.5-35.0) ng/L Triglycerides 46 (<150) mg/dL Cholesterol 119 (<200) mg/dL LDL Cholesterol, Calc 67 (<100) mg/dL HDL Cholesterol 43 (>40) mg/dL Ethyl Alcohol < 10 mg/dL Discharge Plan Discharge Clinical Impression: Acute CVA (cerebrovascular accident) Patient Disposition: Admitted As Inpatient Interventions: Admission Worksheet (ED) Last Done: 05/17/24 09:08 Discharge Date/Time: 05/17/24 10:10
--- NOTE | 2024-05-16 16:00 | ECG_ITS ---
Test Reason : STROKE Blood Pressure : */* mmHG Vent. Rate : 70 BPM Atrial Rate : 70 BPM P-R Int : 162 ms QRS Dur : 84 ms QT Int : 392 ms P-R-T Axes : 76 -3 19 degrees QTcB Int : 423 ms Normal sinus rhythm Normal ECG When compared with ECG of 31-May-2023 21:29, No significant change was found Referred By: Breann Kim Electronically Signed By: MATT TERRELL MD
--- NOTE | 2024-05-16 16:12 | ED.NEUROSD ---
HPI - Neuro Symptoms/Deficit General Chief Complaint: Stroke Stated Complaint: left side sleeping? Can't move his arm much Time Seen by Provider: 05/16/24 16:10 Source: patient Mode of arrival: ambulatory Limitations: no limitations History of Present Illness ED Provider: Dr. Meghan Farnsworth HPI Narrative: Patient comes to the emergency room complaining of weakness and numbness in the left upper and lower extremity. Patient states that about 5 hours 20 minutes ago, patient was standing and noted that his left hand was not responding. Patient states that he could not lift his hand up. Patient tried grabbing the phone and he fell out of his hand. Patient was also experiencing numbness tingling of the whole left upper extremity. patient states that he had the symptoms for 2 hours and around 13:00, he noticed that his left leg was numb and tingling and then also had trouble moving his leg. The left leg was very heavy but could still walk dragging his left leg. Then, about an hour prior to arrival he noted that the right side of his face was very numbness and tingling and then decided to come to emergency room. Related Data Previous Rx's ?Medication ?Instructions ?Recorded ondansetron 4 mg disintegrating 4 mg PO Q8H PRN nausea and 05/27/21 tablet vomiting #20 tabs acetaminophen 500 mg tablet 500 mg PO Q6H PRN fever or pain 07/31/22 (Tylenol Extra Strength) #14 tabs cyclobenzaprine 5 mg tablet 5 mg PO Q8H PRN pain (scale score 07/31/22 7-10) 5 days #14 tabs lidocaine 5 % topical patch 1 patch topical DAILY PRN pain #30 07/31/22 (Lidoderm) ea naproxen 500 mg tablet 500 mg PO BID PRN pain 10 days #20 07/31/22 tabs omeprazole 40 mg capsule,delayed 40 mg PO DAILY #30 caps 06/22/23 release Allergies Allergy/AdvReac Type Severity Reaction Status Date / Time No Known Allergies Allergy Verified 05/16/24 15:56 Review of Systems Review of Systems: Constitutional : No Weight loss, No Fever, No Chills, No Night Sweats, No Fatigue, No Malaise ENT/Mouth : No Hearing loss, No Ear Pain, No Nasal Congestion, No Sinus Pain, No Hoarseness, No sore throat, No Rhinorrhea, No Swallowing Difficulty Eyes: No Eye Pain, No Swelling, No Redness, No Foreign Body, No Discharge, No Vision Changes Cardiovascular : No Chest Pain, No SOB, No Dyspnea on Exertion, No Orthopnea, No Edema, No Palpitations Respiratory : No Cough, No Sputum, No Wheezing, No Smoke Exposure, No Dyspnea Gastrointestinal : No Nausea, No Vomiting, No Diarrhea, No Constipation, No abdominal Pain, No Hematochezia, No Melena Genitourinary : no irregular bleeding, No Dysuria, No Urinary Frequency, No Hematuria, No Urinary Incontinence, No Urgency, No Flank Pain, No Urinary Flow Changes, No Hesitancy Musculoskeletal : No joint pain, No Myalgias, No Joint Swelling Skin : No Skin Lesions, No rash Neuro : complaining of numbness and weakness of the left upper and lower extremity. Also complaining of right facial paresthesia. Psych : No Anxiety/Panic, No Depression, No SI/HI/AH/VH, No Social Issues, Heme/Lymph: No Bruising, No Bleeding,No Lymphadenopathy Endocrine : No Polyuria, No Polydipsia, No Temperature Intolerance [facility] Past Medical History Medical History Anxiety Social History Social History Alcohol intake: never Patient Tobacco Use Status: Never used Tobacco Smoked in Last 30 Days: Yes Use of substances other than those prescribed or required for medical reasons: No Advance Directives: No Advance Directives Information Provided: No Physical Exam Vital Signs: Vital Signs: Last Vital Signs Temp 97.4 F 05/16/24 16:26 Pulse 69 05/16/24 16:26 Resp 18 05/16/24 16:26 BP 148/89 H 05/16/24 16:26 Pulse Ox 100 05/16/24 16:26 O2 Del Method Room Air 05/16/24 16:26 BMI result Body Mass Index 27.4 Const: Other: Appearance: Alert. Oriented X3. No acute distress. Eyes: Pupils equal, round and reactive to light. ENT: Pharynx normal. Neck: Normal inspection. Neck supple. No lymph nodes noted. No crepitus CVS: Normal heart rate and rhythm. Pulses normal. Normal S1 and S2 Respiratory: No respiratory distress. Breath sounds normal. No Wheezing. No rales Abdomen: Soft and nontender. No rigidity. No distention. Skin: Skin warm and dry. Normal skin color. Normal skin turgor. Extremities: no lower extremity edema Neuro: Oriented X 3. patient has decreased strength in left upper and lower extremity, 2/5, normal strength in right side over lower extremity 5/5. Patient has no mouth drooping, no dysarthria Psych: calm, cooperative, normal affect Course Course Course Narrative: NIH score is 2 due to weakness and drifting of the left upper and lower extremity. I discussed the patient with Dr. Manjarrez, since the patient is outside of the window of treatment, at this time he recommends to not use TNK all of patient's labs and imaging pending Medical Decision Making Medical Decision Making MDM Narrative: as mentioned above, patient presented to the emergency room outside of the window of treatment, 5 hr 20 min since the onset of symptoms My interpretation of EKG: Normal sinus rhythm, heart rate 70, no ST segment depression or elevation, no T-wave inversion, QTC 423 my interpretation of labs: No significant abnormality in patient's hematology and chemistry. Lipid panel within normal limits ( not fasting) CT scan of the head and CTA of the head and neck did not show any acute abnormalities. Patient is now able to move his left upper and lower extremities. However, patient states that he still has significant weakness. on physical exam, strength in left upper and lower extremity remain 2/5 patient was given full-dose aspirin as mentioned above, per Dr. Manjarrez from Neurology patient not a candidate for TNK I discussed the patient with Dr. Kaiser from the Medicine team, patient being admitted Differential Diagnosis Differential Diagnoses: The differential diagnosis associated with the presentation includes ( TIA, CVA) Admission/Observation Consideration of admission/observation: Escalation of care including admission/observation considered Consult Healthcare Provider Management of the patient was discussed with: Hospitalist and Welding [employer]man Lab Data [facility] Lab Attestation statement: I reviewed the patient's lab results. 05/16/24 16:23 05/16/24 16:23 Labs: Lab Results 05/16/24 05/16/24 Range/Units 16:09 16:23 WBC 6.7 (4.8-10.8) X10*3/uL RBC 4.39 L (4.60-5.80) X10*6/uL Hgb 14.3 (14.0-18.0) g/dl Hct 39.8 L (42.0-52.0) % MCV 90.7 (80.0-98.0) fL MCH 32.6 (27.0-33.0) pg MCHC 35.9 (31.0-36.0) g/dl RDW 13.0 (11.0-16.0) % Plt Count 177 (160-400) X10*3/uL MPV 9.7 (9.4-12.4) fL Immature Gran % (Auto) 0.3 (0.0-0.4) % Neut % (Auto) 51.2 (45-73) % Lymph % (Auto) 35.0 (20-40) % [place] % (Auto) 10.5 (2-11) % Eos % (Auto) 2.4 (0-4) % Baso % (Auto) 0.6 (0-2) % Lymph # (Auto) 2.3 (1.2-4.9) X10*3/uL [place] # (Auto) 0.7 (0.1-1.2) X10*3/uL Eos # (Auto) 0.2 (0.0-0.4) X10*3/uL Baso # (Auto) 0.0 (0.0-0.2) X10*3/uL Abs Immat Gran (auto) 0.02 (0.00-0.03) X10*3/uL Absolute Neuts (auto) 3.4 (2.0-8.3) x10*3/uL Absolute Nucleated RBC 0.000 (0.0-0.012) X10*3/uL Nucleated RBC % (auto) 0.0 (0.0-0.2) /100WBC PT 12.2 (10.9-12.4) SEC INR 1.0 (0.9-1.1) APTT 35.8 (26.0-36.8) SEC Sodium 139 (135-145) mmol/L Potassium 3.9 (3.3-5.1) mmol/L Chloride 108 (96-108) mmol/L Carbon Dioxide 24 (22-29) mmol/L Anion Gap 11 L (12-20) BUN 13 (9-16) mg/dL Creatinine 0.75 (0.5-1.4) mg/dL Estim Creat Clear Calc 120.3 Estimated GFR > 60 POC Glucose 96 (60-115) mg/dL Random Glucose 83 (60-115) mg/dL Calcium 8.6 (8.4-10.2) mg/dL Troponin I High Sens < 2.7 (<3.5-35.0) ng/L Triglycerides 46 (<150) mg/dL Cholesterol 119 (<200) mg/dL LDL Cholesterol, Calc 67 (<100) mg/dL HDL Cholesterol 43 (>40) mg/dL Ethyl Alcohol < 10 mg/dL Independent Interpretation I performed an independent interpretation of an: EKG and CT Scan Radiology Impression Discussion of test interpretation with radiology: I have reviewed the radiologist's reading. Radiologist Impression: CTA HEAD, bolus contrast injection. 3D reconstructions and MPRs:: Comparison: 05/31/2023 Right Carotid Siphon: Right Anterior Cerebral Artery: A1 and A2 segments are unremarkable. There is peripheral cortical enhancement. Right Middle Cerebral Artery: M1 and M2 segments are unremarkable. There is peripheral cortical enhancement. Right Posterior Cerebral Artery: There is persistent right posterior cerebral artery circulation, a normal variant. P2 segments are unremarkable]. There is peripheral enhancement Left Carotid Siphon: Left Anterior Cerebral Artery: A1 and A2 segments are unremarkable. There is peripheral cortical enhancement. Left Middle Cerebral Artery: M1 and M2 segments are unremarkable. There is peripheral cortical enhancement. Left Posterior Cerebral Artery: There is persistent left posterior cerebral artery circulation, a normal variant. P2 segments are unremarkable]. There is peripheral cortical enhancement. Basilar Artery: Normal Venous drainage: Normal. Impression: No stenosis No signs of aneurysm. No signs of arterial venous malformation. CTA Neck , Bolus contrast injection, 3D reconstructions and MPRs: Comparison: 05/31/2023 Findings: Soft tissues of the neck are unremarkable Superior aorta and branch vessels are unremarkable Right carotid: No stenosis (NASCET) Right vertebral: No stenosis Left Carotid: No stenosis (NASCET) Left Vertebral: No stenosis. Impression: No stenosis No aneurysm or dissection Cortical sulci are symmetric Basal ganglia are unremarkable No shift in midline structures No intraparenchymal bleeding or abnormal extra axial blood fluid collections Normal pituitary size Clear paranasal sinuses Unremarkable orbital structures No depressed fractures NIH Stroke Scale Internal: Initial- Upon Arrival Level of Consciousness: Alert Level of Consciousness Questions: Answers both questions correctly Level of Consciousness Commands: Performs both tasks correctly Best Gaze: Normal Visual: No visual loss Facial Palsy: Normal Motor Arm (Right): No drift Motor Arm (Left): Drift Motor Leg (Right): No drift Motor Leg (Left): Drift Limb Ataxia: Absent Sensory: Normal Best Language: No aphasia Dysarthia: Normal Extinction and Inattention: No abnormality Score: 2 Critical Care Time Critical Care Time Critical Care Time: Yes Total Critical Care Time: 60 Attestation: I have personally provided critical care time. Time includes review of lab data, radiology results, discussion with consultants, and monitoring for potential decompensation. Intervention performed as documented. Discharge Plan Discharge Clinical Impression: Acute CVA (cerebrovascular accident) Patient Disposition: Admitted As Inpatient Prescriptions: No Action ondansetron 4 mg tablet,disintegrating 4 mg PO Q8H PRN (Reason: nausea and vomiting) Qty: 20 0RF acetaminophen [Tylenol Extra Strength] 500 mg tablet 500 mg PO Q6H PRN (Reason: fever or pain) Qty: 14 0RF lidocaine [Lidoderm] 5 % adhesive patch,medicated 1 patch topical DAILY MDD remove after 12 hours PRN (Reason: pain) Qty: 30 0RF Rx Instructions: leave on most painful area for up to 12 hrs naproxen 500 mg tablet 500 mg PO BID PRN (Reason: pain) 10 Days Qty: 20 0RF cyclobenzaprine 5 mg tablet 5 mg PO Q8H PRN (Reason: pain (scale score 7-10)) 5 Days Qty: 14 0RF omeprazole 40 mg capsule,delayed release(DR/EC) 40 mg PO DAILY Qty: 30 0RF Print Language: [place]uran
[2024-05-16 16:17] LABS: Glucose, Whole Blood 96 mg/dL (60-115)
[2024-05-16 16:26] VITALS: BP 148/89; PULSE 69; RESP 18; TEMP 36.3; O2SAT 100
[2024-05-16 16:27] LABS: MANUAL DIFF FLAG NO
[2024-05-16 16:30] LABS: Basophils Percent Auto 0.6 % (0-2); Eosinophils Absolute Auto 0.2 X10*3/uL (0.0-0.4); Eosinophils Percent Auto 2.4 % (0-4); Hematocrit 39.8 % (42.0-52.0); Hemoglobin 14.3 g/dl (14.0-18.0); Imm Gran Abs Auto 0.02 X10*3/uL (0.00-0.03); Imm Gran Pct Auto 0.3 % (0.0-0.4); Lymphocytes Absolute Auto 2.3 X10*3/uL (1.2-4.9); Mean Corpuscular HGB Conc 35.9 g/dl (31.0-36.0); Mean Corpuscular Hemoglobin 32.6 pg (27.0-33.0); Mean Corpuscular Volume 90.7 fL (80.0-98.0); Mean Platelet Volume 9.7 fL (9.4-12.4); Monocytes Absolute Auto 0.7 X10*3/uL (0.1-1.2); Monocytes Percent Auto 10.5 % (2-11); Neutrophils Absolute Auto 3.4 x10*3/uL (2.0-8.3); Neutrophils Percent Auto 51.2 % (45-73); Platelet Count 177 X10*3/uL (160-400); Red Blood Count 4.39 X10*6/uL (4.60-5.80); White Blood Count 6.7 X10*3/uL (4.8-10.8)
--- NOTE | 2024-05-16 16:31 | PC.NURSE ---
reports this morning left arm went numb and then his head went numb shortly after. he had trouble grasping things with his left arm. IN ED pt reporting back of neck numbness and headache. EKG and stoke protocol orders complete, swallow screen pass. NSR on tele. AOX4.
[2024-05-16 16:36] LABS: Prothrombin Time 12.2 SEC (10.9-12.4)
[2024-05-16 16:39] LABS: Partial Thromboplastin Time 35.8 SEC (26.0-36.8)
[2024-05-16 16:48] LABS: Anion Gap 11 (12-20); Blood Urea Nitrogen 13 mg/dL (9-16); Calcium 8.6 mg/dL (8.4-10.2); Carbon Dioxide 24 mmol/L (22-29); Chloride 108 mmol/L (96-108); Cholesterol 119 mg/dL (<200); Creatinine Clr Calc Pharmacy 120.3; Estimated Glomerular Filt Rate > 60; Glucose Random 83 mg/dL (60-115); HDL Cholesterol 43 mg/dL (>40); LDL Cholesterol Calculated 67 mg/dL (<100); Potassium 3.9 mmol/L (3.3-5.1); Sodium 139 mmol/L (135-145); Triglycerides 46 mg/dL (<150)
[2024-05-16 16:57] LABS: Troponin-I High Sensitivity < 2.7 ng/L (<3.5-35.0)
[2024-05-16 17:09] LABS: Stroke Lab Use COMPLETE
[2024-05-16 17:11] LABS: Ethanol < 10 mg/dL
[2024-05-16] MEDS: Aspirin Enteric Coated 325 MG TABLET.DR PO (17:36)
--- NOTE | 2024-05-16 17:48 | PC.NURSE ---
pt reports weakness on left side. his grasp shows some mild left sided weakness compared to his right. no facial droop or slurred speech.
--- NOTE | 2024-05-16 18:30 | PHA.MEDREC ---
Addendum entered by Jason Schrader 05/16/24 18:35: reviewed Original Note: Pharmacy Consult ? Medication Reconciliation Pharmacy has completed the medication reconciliation.
--- NOTE | 2024-05-16 18:35 | PM.IMHP ---
History of Present Illness Date of Service: 05/16/24 Attending physician on admission: Maicol Elaine Chief Complaint: Left arm numbness and weakness Pt is a 49-year-old Lebanese-speaking male with a PMH significant for?reported MT in [place] in 2005 and anxiety not on any home meds who presents to the ED with?left-sided numbness and tingling that began this morning. Pt states symptoms began at approximately 11:00 when his left arm became numb and he found that he could no longer move it. 5-10 minutes later numbness, tingling, and weakness spread to his left leg. Also reports had right sided headache, pain/pressure behind his eye, difficulty opening his eye, and numbness and tingling of the right side of his face. Also reports fogginess and thinking and some difficulty word finding. Symptoms lasted until 13:00 when he began to be able to move the left side of his body again. Pt waited until a few hours later to come to the ED for further evaluation. Pt also admits that for the past 6 months he has been having episodes where he suddenly ?passes out? while speaking to friends. States he sees stars, vision becomes blurry, and then he ?blacks out?. Episodes occur approximately every other week. Unclear how long each episode lasts. Denies chest pain/pressure, palpitations. No fever, chills, nausea, vomiting, abdominal pain. Denies shortness or breath or difficulty breathing. In the ED pt was hypertensive up to 155/78 vitals were stable and WNL. Labs were grossly unremarkable and around baseline for pt. No leukocytosis. Stable H&H. No electrolyte abnormalities. Renal function WNL. Troponin negative. Lipid profile WNL. CT?of head negative for acute abnormality. CTA of head/neck negative for stenosis, aneurysm, or dissection. EKG demonstrated normal sinus rhythm without evidence of significant ST elevations or depressions, similar to prior. Pt was treated with aspirin. Pt will be admitted to the hospital for treatment further evaluation of left-sided deficits concerning for CVA vs complex migraine. Review of Systems Review of Systems: Negative except for that which is stated in the [facility] Medical History Anxiety Social History Alcohol intake: never Patient Tobacco Use Status: Never used Tobacco Smoked in Last 30 Days: Yes Use of substances other than those prescribed or required for medical reasons: No Advance Directives: No Advance Directives Information Provided: No Meds Allergies Allergy/AdvReac Type Severity Reaction Status Date / Time No Known Allergies Allergy Verified 05/16/24 15:56 Home Medications ?Medication ?Instructions ?Recorded ?Confirmed ?Last Taken ?Type No Known Home Meds 05/16/24 05/16/24 Unknown History Physical Exam Vital Signs and Narrative: Vital Signs: Last Vital Signs Temp 97.4 F 05/16/24 16:26 Pulse 69 05/16/24 16:26 Resp 18 05/16/24 16:26 BP 148/89 H 05/16/24 16:26 Pulse Ox 100 05/16/24 16:26 O2 Del Method Room Air 05/16/24 16:26 BMI result Body Mass Index 27.4 General: AOx3, no acute distress Resp: CTA bilaterally CVS: S1, S2, RRR GI: +BS, NT, no distention Skin: Warm, dry Neuro: Sensation to light touch diminished in left lower extremity, otherwise intact. Left upper and lower extremity 3/5 strength, 5/5 strength in right upper and lower extremities. No facial droop noted. Pt's speech full and fluent. No dysarthria or difficulty word finding noted. Visual hunter full. Negative pronator drift. Extremities: No edema Psych: Appropriate affect Results Labs 05/16/24 16:23 05/16/24 16:23 Labs: Laboratory Results - last 24 hr 05/16/24 05/16/24 16:09 16:23 MCV 90.7 MCH 32.6 MCHC 35.9 RDW 13.0 Plt Count 177 MPV 9.7 Immature Gran % (Auto) 0.3 Neut % (Auto) 51.2 Lymph % (Auto) 35.0 [place] % (Auto) 10.5 Eos % (Auto) 2.4 Baso % (Auto) 0.6 Lymph # (Auto) 2.3 [place] # (Auto) 0.7 Eos # (Auto) 0.2 Baso # (Auto) 0.0 Abs Immat Gran (auto) 0.02 Absolute Neuts (auto) 3.4 Absolute Nucleated RBC 0.000 Nucleated RBC % (auto) 0.0 PT 12.2 INR 1.0 APTT 35.8 Anion Gap 11 L Estim Creat Clear Calc 120.3 Estimated GFR > 60 POC Glucose 96 Random Glucose 83 Calcium 8.6 Triglycerides 46 Cholesterol 119 LDL Cholesterol, Calc 67 HDL Cholesterol 43 Ethyl Alcohol < 10 Assessment and Plan (1) Left-sided weakness: Status: Acute Plan Pt is a 49-year-old Lebanese-speaking male with a PMH significant for reported MT in [place] in 2005 and?anxiety not on any home meds who presents to the ED with?left-sided numbness and tingling that began this morning. Pt will be admitted to the hospital for treatment further evaluation of left-sided deficits concerning for CVA vs complex migraine. Left-sided deficits Pt complains of sudden onset left-sided numbness, weakness, and tingling, as well as right-sided headache, facial numbness, and difficulty opening right eye Symptoms primarily lasted from 11:00 to 13:00 Currently pt with residual weakness, 3/5 left upper and lower extremity strength CT of head and CTA of head/neck negative Concerning for CVA vs complex migraine Lipid panel WNL Will treat with aspirin 81 mg daily We will get MRI of head Neurology consult PT/OT evaluation Monitor on telemetry ?Syncopal episodes Pt reports episodes of ?blacking out? while speaking to friends Ongoing x6 months, episodes occur around every 2 weeks Treatment and additional workup as above Neurology consult Anxiety Not on home meds Full Code Attending:?Dr. Elaine DVT Prophylaxis: Lovenox Pt will require a hospitalization of at least two nights for treatment of?left-sided deficits concerning for CVA vs complex migraine. Pt require hospital level care for close monitoring of cardiac and neurological function, as well as additional workup with MRI and specialist consultation with Neurology. Quality Stroke Does the patient have a stroke diagnosis?: No VTE Prior VTE?: No VTE Risk Level:: Medical - moderate - high VTE Device Contraindication: Treatment Not Indicated VTE Drug Contraindication: N/A - Med Ordered
[2024-05-16 20:08] VITALS: BP 156/92; PULSE 52; RESP 16; TEMP 36.6; O2SAT 99
[2024-05-16] MEDS: Enoxaparin Sodium 40 MG/0.4 ML SYRINGE SUBCUT (20:31)
[2024-05-17] VITALS (9 sets, daily range): BP systolic 110–140; BP diastolic 68–82; PULSE 53–74; RESP 12–18; TEMP 36.3–36.8; O2SAT 96–99
[2024-05-17] MEDS: 0.9 % Sodium Chloride Flush 3 ML SYRINGE IVFLUSH ×4 (00:31→19:33)
--- NOTE | 2024-05-17 06:59 | HO.PM.IMPN ---
Subjective Subjective Date of Service: 05/17/24 Interval History: f/u on cva left sided weakness Persistent weakness on the left side 3/5 on Upper and Lower ext. Physical Exam Vital Signs: Vital Signs: Last Vital Signs Temp 97.9 F 05/17/24 04:19 Pulse 60 05/17/24 04:19 Resp 12 05/17/24 04:19 BP 133/82 05/17/24 04:19 Pulse Ox 96 05/17/24 04:19 O2 Del Method Room Air 05/17/24 04:19 BMI result Body Mass Index 27.4 Const: Other: essentially unchanged from yesterday General: AOx3, no acute distress Resp: CTA bilaterally CVS: S1, S2, RRR GI: +BS, NT, no distention Skin: Warm, dry Neuro: Sensation to light touch diminished in left lower extremity, otherwise intact. Left upper and lower extremity 3/5 strength, 5/5 strength in right upper and lower extremities. No facial droop noted. Pt's speech full and fluent. No dysarthria or difficulty word finding noted. Visual hunter full. Negative pronator drift. Extremities: No edema Psych: Appropriate affect Objective Data Active Medications Acetaminophen (Acetaminophen 325 Mg Tablet) 650 mg PO Q6H PRN PRN Reason: Pain, Mild 1-3,fever,headache Aspirin (Aspirin Enteric Coated 81 Mg Tablet.Dr) 81 mg PO DAILY [facility] Calcium Carbonate (Calcium Carbonate 750 Mg Tab.Chew) 750 mg PO Q4H PRN PRN Reason: Heartburn Enoxaparin Sodium (Enoxaparin Sodium 40 Mg/0.4 Ml Syringe) 40 mg SUBCUT Q24H [facility] Last Admin: 05/16/24 20:31 Dose: 40 mg Documented By: LITA Magnesium Hydroxide (Milk Of Magnesia 30 Ml Oral.Susp) 30 ml PO DAILY PRN PRN Reason: Constipation Melatonin (Melatonin 3 Mg Tablet) 6 mg PO BEDTIME PRN PRN Reason: Insomnia Ondansetron HCl (Ondansetron Hcl 4 Mg/2 Ml Vial) 4 mg IVPUSH Q8H PRN PRN Reason: Nausea and Vomiting Sodium Chloride (0.9 % Sodium Chloride Flush 3 Ml Syringe) 3 ml IVFLUSH QSHIFT [facility] Last Admin: 05/17/24 00:31 Dose: 3 ml Documented By: LITA Labs 05/16/24 16:23 05/16/24 16:23 Labs: Laboratory Results - last 24 hr 05/16/24 05/16/24 16:09 16:23 MCV 90.7 MCH 32.6 MCHC 35.9 RDW 13.0 Plt Count 177 MPV 9.7 Immature Gran % (Auto) 0.3 Neut % (Auto) 51.2 Lymph % (Auto) 35.0 Roosevelt % (Auto) 10.5 Eos % (Auto) 2.4 Baso % (Auto) 0.6 Lymph # (Auto) 2.3 Roosevelt # (Auto) 0.7 Eos # (Auto) 0.2 Baso # (Auto) 0.0 Abs Immat Gran (auto) 0.02 Absolute Neuts (auto) 3.4 Absolute Nucleated RBC 0.000 Nucleated RBC % (auto) 0.0 PT 12.2 INR 1.0 APTT 35.8 Anion Gap 11 L Estim Creat Clear Calc 120.3 Estimated GFR > 60 POC Glucose 96 Random Glucose 83 Calcium 8.6 Triglycerides 46 Cholesterol 119 LDL Cholesterol, Calc 67 HDL Cholesterol 43 Ethyl Alcohol < 10 Assessment and Plan (1) Acute CVA (cerebrovascular accident): Status: Acute (2) Left-sided weakness: Status: Acute Plan 49-year-old Estonian-speaking male with a PMH significant for reported [place] in [place] in 2005 and?anxiety not on any home meds who presents to the ED with?left-sided numbness and tingling that began this morning. Pt will be admitted to the hospital for treatment further evaluation of left-sided deficits concerning for CVA vs complex migraine. Left-sided weakness 3/5 residueal upper and LLE strenght, numness and tingingling > 12 hrs now, CT and CTA negative, MRI + right prefrontal gyrus stroke Lipid normal, ASSA, PT/OT eval. Neuro eval pending. Neurochecks ?Syncopal episodes Pt reports episodes of ?blacking out? while speaking to friends Ongoing x6 months, episodes occur around every 2 weeks Treatment and additional workup as above Neurology consult Anxiety Not on home meds Full Code DVT Prophylaxis: Lovenox need for inpt: CVA work up Quality Stroke Does the patient have a stroke diagnosis?: No VTE Prior VTE?: No VTE Risk Level:: Medical - moderate - high VTE Device Contraindication: Treatment Not Indicated VTE Drug Contraindication: N/A - Med Ordered
[2024-05-17] MEDS: Aspirin Enteric Coated 81 MG TABLET.DR PO (07:12)
[2024-05-17 07:15] LABS: Glucose, Whole Blood 99 mg/dL (60-115)
[2024-05-17] MEDS: Acetaminophen 325 MG TABLET 650 MG PO (07:15)
--- NOTE | 2024-05-17 07:16 | PC.NURSE ---
patient a&ox3, vss, monitoring manager intact nsr on monitor, pt has lt arm weakness-no drift noted, ble equal strength bilat. smile symetrical. pt c/o 05/04 lt leg pain-medicated with tylenol per his request, rr equal/non labored lungs dimished, call albert with reach, plan of care ongoing
--- NOTE | 2024-05-17 10:51 | PM.NEUROCN ---
History of Present Illness Data of Consult Service Date: 05/17/24 Primary Care Provider: Unknown Physician HPI Reason for consult: Cerebral infarction 49 years old man who apparently has history of coronary artery disease or heart attack when he was in [place] came to hospital with new onset of left-sided weakness. It started about 4 hours before he came to emergency room. He was noted to have mild left-sided weakness but despite that weakness, due to time issues he was not considered a candidate for TNK. CTA did not reveal any vascular lesion that could be intervened and he was admitted. There was no associated headache nausea vomiting or any complained of visual symptom. Review of Systems Review of Systems: No shortness of breath palpitation or chest pain PMFSH Past Medical History Medical History Anxiety Social History Social History Alcohol intake: never Patient Tobacco Use Status: Current everyday Tobacco user Meds Allergies Allergy/AdvReac Type Severity Reaction Status Date / Time No Known Allergies Allergy Verified 05/16/24 15:56 Active Medications: Current Medications Acetaminophen (Acetaminophen 325 Mg Tablet) 650 mg PO Q6H PRN PRN Reason: Pain, Mild 1-3,fever,headache Last Admin: 05/17/24 07:15 Dose: 650 mg Aspirin (Aspirin Enteric Coated 81 Mg Tablet.Dr) 81 mg PO DAILY [facility] Last Admin: 05/17/24 07:12 Dose: 81 mg Calcium Carbonate (Calcium Carbonate 750 Mg Tab.Chew) 750 mg PO Q4H PRN PRN Reason: Heartburn Enoxaparin Sodium (Enoxaparin Sodium 40 Mg/0.4 Ml Syringe) 40 mg SUBCUT Q24H [facility] Last Admin: 05/16/24 20:31 Dose: 40 mg Magnesium Hydroxide (Milk Of Magnesia 30 Ml Oral.Susp) 30 ml PO DAILY PRN PRN Reason: Constipation Melatonin (Melatonin 3 Mg Tablet) 6 mg PO BEDTIME PRN PRN Reason: Insomnia Ondansetron HCl (Ondansetron Hcl 4 Mg/2 Ml Vial) 4 mg IVPUSH Q8H PRN PRN Reason: Nausea and Vomiting Sodium Chloride (0.9 % Sodium Chloride Flush 3 Ml Syringe) 3 ml IVFLUSH QSHIFT [facility] Last Admin: 05/17/24 07:12 Dose: 3 ml Home Medications ?Medication ?Instructions ?Recorded ?Confirmed ?Last Taken ?Type No Known Home Meds 05/16/24 05/16/24 Unknown History Physical Exam Vital Signs: Vital Signs: Last Vital Signs Temp 97.7 F 05/17/24 09:49 Pulse 61 05/17/24 09:49 Resp 18 05/17/24 09:49 BP 129/74 05/17/24 09:49 Pulse Ox 98 05/17/24 09:49 O2 Del Method Room Air 05/17/24 09:49 BMI result Body Mass Index 27.4 Neuro: Other: He is alert and awake with normal spontaneity of speech fluency comprehension and affect. Into was performed with the help of an data processing operator. Visual field testing revealed left hemianopsia. There was no pronator drift. Face was symmetrical. There was mild left-sided leg weakness. Plantars were flexor. Results Labs 05/16/24 16:23 05/16/24 16:23 Labs: Short CBC 05/16/24 Range/Units 16:23 WBC 6.7 (4.8-10.8) X10*3/uL Hgb 14.3 (14.0-18.0) g/dl Hct 39.8 L (42.0-52.0) % Plt Count 177 (160-400) X10*3/uL BMP 05/16/24 16:23 Sodium 139 Potassium 3.9 Chloride 108 Carbon Dioxide 24 BUN 13 Creatinine 0.[address]cium [address] did not reveal any obvious acute abnormality. CTA did not reveal any vascular lesion. MRI of brain revealed patchy area of restricted diffusion and right frontal low. FLAIR sequence also revealed many similar chronic lesions. EKG revealed sinus rhythm. Assessment and Plan (1) Acute CVA (cerebrovascular accident): Status: Acute 49 years old man with acute embolic looking right frontal small ischemic infarction resulting in mild left hemiparesis. His imaging also revealed many similar chronic lesions. His blood pressure was not that high and there was no obvious explanation. I would expect and underlying cardiac or hematological reason for coagulation and embolism. My recommendation is to do a tox screen and if that is negative for something like cocaine, which sometime can also cause this kind of problem, put him on warfarin for 3-6 months. During this time he should be investigated for cardiac source of embolism or any hypercoagulable state. Procedures Date of Service Date of Service: 05/17/24
[2024-05-17 12:22] LABS: Amphetamine Screen Urine Not Detected (Not Detect); Barbiturates, Urine Not Detected (Not Detect); Benzodiazepines Screen Urine Not Detected (Not Detect); Buprenorphine Scr Not Detected (Not Detect); Cannabinoid Screen Urine Not Detected (Not Detect); Cocaine Screen Urine Not Detected (Not Detect); Fentanyl, urine Not Detected (Not Detect); Methadone Screen, Urine Not Detected (Not Detect); Opiate Screen Urine Not Detected (Not Detect); Oxycodone Screen Urine Not Detected (Not Detect); Phencyclidine Screen Urine Not Detected (Not Detect)
--- NOTE | 2024-05-17 13:35 | MHC.CM.PN ---
CM MET WITH PT WITH A SADDLE CUTTER PT REPORTS HE LIVES WITH HIS MOTHER PT IS INDEPENDENT WITH NO SERVICES AND NO DME PT DOES NOT HAVE A HCP AND IS NOT INTERESTED IN COMPLETING A HCP DCP TBD: HOME VS HOME WITH OUTPATIENT PT PT IS NOT WILLING TO TO GO REHAB PER HIS REPORT TRANSPORT: FAMILY VS SHUTTLE
[2024-05-17] MEDS: Enoxaparin Sodium 40 MG/0.4 ML SYRINGE SUBCUT (19:33)
[2024-05-18] VITALS (7 sets, daily range): BP systolic 119–128; BP diastolic 72–80; PULSE 60–69; RESP 14–18; TEMP 36.4–36.9; O2SAT 97–98
[2024-05-18] MEDS: Aspirin Enteric Coated 81 MG TABLET.DR PO (08:46)
[2024-05-18] MEDS: 0.9 % Sodium Chloride Flush 3 ML SYRINGE IVFLUSH (08:46)
--- NOTE | 2024-05-18 10:21 | P.PNIM_ITS ---
Subjective Subjective Date of Service: 05/18/24 Physical Exam 2 Vital Signs: Vital Signs: Last Vital Signs Temp 97.9 F 05/18/24 07:24 Pulse 62 05/18/24 07:24 Resp 16 05/18/24 07:24 BP 119/74 05/18/24 07:24 Pulse Ox 97 05/18/24 07:24 O2 Del Method Room Air 05/18/24 07:24 BMI result Body Mass Index 27.4 Objective Data Active Medications Acetaminophen (Acetaminophen 325 Mg Tablet) 650 mg PO Q6H PRN PRN Reason: Pain, Mild 1-3,fever,headache Last Admin: 05/17/24 07:15 Dose: 650 mg Documented By: JESSICA Aspirin (Aspirin Enteric Coated 81 Mg Tablet.Dr) 81 mg PO DAILY [facility] Last Admin: 05/18/24 08:46 Dose: 81 mg Documented By: ZARIA Atorvastatin Calcium (Atorvastatin Calcium 20 Mg Tablet) 20 mg PO DAILY [facility] Calcium Carbonate (Calcium Carbonate 750 Mg Tab.Chew) 750 mg PO Q4H PRN PRN Reason: Heartburn Enoxaparin Sodium (Enoxaparin Sodium 40 Mg/0.4 Ml Syringe) 40 mg SUBCUT Q24H [facility] Last Admin: 05/17/24 19:33 Dose: 40 mg Documented By: SUZIE Magnesium Hydroxide (Milk Of Magnesia 30 Ml Oral.Susp) 30 ml PO DAILY PRN PRN Reason: Constipation Melatonin (Melatonin 3 Mg Tablet) 6 mg PO BEDTIME PRN PRN Reason: Insomnia Ondansetron HCl (Ondansetron Hcl 4 Mg/2 Ml Vial) 4 mg IVPUSH Q8H PRN PRN Reason: Nausea and Vomiting Sodium Chloride (0.9 % Sodium Chloride Flush 3 Ml Syringe) 3 ml IVFLUSH QSHIFT [facility] Last Admin: 05/18/24 08:46 Dose: 3 ml Documented By: ZARIA Labs 05/16/24 16:23 05/16/24 16:23 Labs: Laboratory Results - last 24 hr 05/17/24 11:33 Urine Opiates Screen Not Detected Ur Buprenorphine Scrn Not Detected Ur Oxycodone Screen Not Detected Urine Methadone Screen Not Detected Urine Fentanyl Screen Not Detected Ur Barbiturates Screen Not Detected Ur Phencyclidine Scrn Not Detected Ur Amphetamines Screen Not Detected U Benzodiazepines Scrn Not Detected Urine Cocaine Screen Not Detected U Marijuana (THC) Screen Not Detected Assessment and Plan (1) Acute CVA (cerebrovascular accident): Status: Acute (2) Left-sided weakness: Status: Acute Plan 49-year-old Cambodian-speaking male with a PMH significant for reported [place] in [place] in 2006 and?anxiety not on any home meds who presents to the ED with?left-sided numbness and tingling that began this morning. Pt will be admitted to the hospital for treatment further evaluation of left-sided deficits concerning for CVA vs complex migraine. Left-sided weakness 3/5 residueal upper and LLE strenght, numness and tingingling > 12 hrs now, CT and CTA negative, MRI + right prefrontal gyrus stroke, neurology thinks likely cardiac embolic source and recommends anticoagulation for at least 3 months, hypercoagulable work up and cardiac embolic source investigation. Continue ASA, adding Plavix in place of coumadin, and low dose lipid since Lipid profile is favorable. PT is recommending acute inpatient rehab but he's hesitant. Getting echo today ?Syncopal episodes Pt reports episodes of ?blacking out? while speaking to friends Ongoing x6 months, episodes occur around every 2 weeks Treatment and additional workup as above Neurology consult Anxiety Not on home meds Full Code DVT Prophylaxis: Lovenox need for inpt: CVA work up Quality Stroke Does the patient have a stroke diagnosis?: No VTE Prior VTE?: No VTE Risk Level:: Medical - moderate - high VTE Device Contraindication: Treatment Not Indicated VTE Drug Contraindication: N/A - Med Ordered
[2024-05-18 10:33] LABS: Prothrombin Time Whole Bld POC 13.1 sec (11.1-13.5); ~PT, ~INR - Anti Coag Clinic 1.1 (0.9-1.1)
[2024-05-18] MEDS: Atorvastatin Calcium 20 MG TABLET PO (10:41)
[2024-05-18] MEDS: Apixaban 5 MG TABLET PO ×2 (10:41→19:55)
--- NOTE | 2024-05-18 10:52 | MHC.CM.PN ---
PT & CM met with Patient at bedside to discuss PT's recommendation for Acute Rehab. Patient and his Mother would prefer a dc to home but because Patient MAY have a PCP @ [facility], but has not yet had the initial appointment, it is unlikely that Patient is eligible for VNA & home PT. CM has referred to the 3 area Acute Rehabs, with Patient's permission, and Mother is checking with [facility]. CM will follow.
[2024-05-18] MEDS: Nicotine 14 MG PATCH.TD24 TRANSDERMA (10:56)
[2024-05-19 02:52] VITALS: BP 111/58; PULSE 64; RESP 18; TEMP 36.6; O2SAT 96
--- NOTE | 2024-05-19 07:00 | CA_ITS ---
Transthoracic Echocardiogram Patient (Last, First, Middle): Fabian Chance, Gender: Male Date of : 1975 Age: 49 Procedure Date: 05/19/2024 Procedure Type: Transthoracic Echocardiogram Location: [facility] Height: 177.8 cm Weight: 86.18 kg BSA: 2.04 m2 Heart Rate: bpm BP: 119 / 74 mmHg Change Management Facilitator: TO Referring MD: Xavi Mccord MD General Accounting Clerk: Adrian Fam MD Symptoms: Stroke Study Quality: Good ECG Rhythm: Sinus Conclusions: - 1. Normal LV ejection fraction 55-60% 2. Mild aortic regurgitation 3. Mildly dilated ascending aorta 4. No gross pericardial effusion Findings Left Ventricle Normal left ventricular size, thickness, and systolic function. The visually estimated ejection fraction is between 55-60%. Spectral Doppler is indicative of a normal filling pattern. Right Ventricle Normal right ventricular cavity size and systolic function. Atria Both atria are normal in size. There is no evidence of interatrial shunt by agitated saline. Aortic Valve Normal aortic valve structure and function. There is no aortic valve stenosis. There is mild aortic valve regurgitation. Mitral Valve Normal mitral valve structure and function. There is trace mitral valve regurgitation. There is no mitral valve stenosis. Pulmonic Valve The pulmonic valve is likely normal. Tricuspid Valve Normal tricuspid valve structure. Tricuspid regurgitation envelope is inadequate for calculation of right ventricular systolic pressure. Normal right atrial pressure. Great Vessels The pulmonary artery was not well visualized. There is mild dilatation of the ascending aorta measuring 3.80 cm. Venous The inferior vena cava is normal in size and collapses greater than 50% with inspiration. Pericardium/Pleural There is no evidence of pericardial effusion. Prior Study Comparison No prior study available for comparison. Measurements 2D Linear Measurements IVSd: 0.90 0.6-0.9/0.6-1.0 cm LVIDd: 5.27 3.9-5.3/4.2-5.9 cm LVIDd Index: 2.58 2.4-3.2/2.2-3.1 cm/m2 LVIDs: 3.65 2.0-3.6 cm LVPWd: 0.80 0.7-1.1 cm LA Diam: 3.10 2.7-3.8/3.0-4.0 cm LAIDs Index: 1.52 1.5-2.3 cm/m2 LV Mass: 200.85 67-162/88-224 g LV Mass Index: 98.45 43-95/49-115 g/m2 LVOT Diam: 2.20 3.0+(-)1.3 cm 2D Systolic Function EF 4C: 54.20 >55% EF 2C: 54.90 >55% EF BiP: 54.20 >55% Mitral Valve MV Pk E: 0.39 MV PK A: 0.29 MV Decel Time: 322.00 E/A: 1.30 E'Lateral: 10.10 E'Medial: 8.05 E/E' Med: 4.80 E/E' Lat: 3.90 PHT: 94.00 MVA PHT: 2.34 Decel [place]: 1.21 Aortic Valve AoV Pk Saulo: 1.29 AoV Mn Saulo: 0.84 AoV VTI: 0.23 AoV Pk Grad: 7.00 Aov Mn Grad: 3.00 TOM Cont.VTI: 3.07 LVOT LVOT Pk Saulo: 1.02 LVOT Mn Saulo: 0.67 LVOT VTI: 0.19 LVOT Pk Grad: 4.00 LVOT Mn Grad: 2.00 LVOT Diam: 2.20 LVOT Area: 3.80 Diastolic Function MV Pk E: 0.39 MV Pk A: 0.29 E/A: 1.30 E'Medial: 8.05 E/E' Med: 4.80 E' Laterial: 10.10 E/E' Lat: 3.90 Tricuspid Valve RA Press: 3.00 Great Vessels Aorta Ao Asc: 3.80 2.1-3.4 cm Updated in Other Vendor System with Status of Final Adrian Fam MD electronically signed on 05/19/2024 12:36:30 PM with status of Final
[2024-05-19 07:20] VITALS: BP 127/73; PULSE 71; RESP 18; TEMP 36.7; O2SAT 98
[2024-05-19] MEDS: Atorvastatin Calcium 20 MG TABLET PO (08:54)
[2024-05-19] MEDS: Apixaban 5 MG TABLET PO (08:54)
[2024-05-19] MEDS: Aspirin Enteric Coated 81 MG TABLET.DR PO (08:55)
[2024-05-19] MEDS: Nicotine 14 MG PATCH.TD24 TRANSDERMA (08:55)
[2024-05-19] MEDS: 0.9 % Sodium Chloride Flush 3 ML SYRINGE IVFLUSH (08:55)
--- NOTE | 2024-05-19 09:07 | MHC.CM.PN ---
Addendum entered by Alysia Jerome 05/19/24 11:59: [facility] is able to accept Patient. Original Note: CM met with Patient at bedside and spoke with Mother/Jennifer @ [phone]. PT is recommending Acute Rehab and Patient has declined both bed offers from [facility]. Patient wants to return home today, self care, go to his initial PCP appointment with CHIDI/Grace Rodriguez @ [facility] on 05/25/2024 @ 11:30 AM and be set up with VNA at that time. Patient states that he lives with his Mother and has an Uncle who is a PT, who can assist him. Patient and his Mother are aware of and in agreement with this dc plan. has been made aware.
[2024-05-19 09:11] VITALS: BP 127/73; PULSE 71; O2SAT 98
--- NOTE | 2024-05-19 09:33 | P.DS_ITS ---
DS: Providers Provider Date of Service: 05/19/24 Date of admission: 05/16/24 19:18 Date of discharge: 05/19/24 Primary care physician: Unknown Physician Consults: 05/16/24 19:23 Consult to Neurology Routine Consulting Provider: [facility] Reason for consultation: Left-sided deficits, ?CVA vs complex migraine DS: Diagnosis Discharge Diagnosis (1) Acute CVA (cerebrovascular accident): Status: Acute (2) Left-sided weakness: Status: Acute DS: Summary Hospital Course Hospital Course: admission hpi Chief Complaint: Left arm numbness and weakness Pt is a 49-year-old Panamanian-speaking male with a PMH significant for?reported [place] in [place] in 2005 and anxiety not on any home meds who presents to the ED with?left-sided numbness and tingling that began this morning. Pt states symptoms began at approximately 11:00 when his left arm became numb and he found that he could no longer move it. 5-10 minutes later numbness, tingling, and weakness spread to his left leg. Also reports had right sided headache, pain/pressure behind his eye, difficulty opening his eye, and numbness and tingling of the right side of his face. Also reports fogginess and thinking and some difficulty word finding. Symptoms lasted until 13:00 when he began to be able to move the left side of his body again. Pt waited until a few hours later to come to the ED for further evaluation. Pt also admits that for the past 6 months he has been having episodes where he suddenly ?passes out? while speaking to friends. States he sees stars, vision becomes blurry, and then he ?blacks out?. Episodes occur approximately every other week. Unclear how long each episode lasts. Denies chest pain/pressure, palpitations. No fever, chills, nausea, vomiting, abdominal pain. Denies shortness or breath or difficulty breathing. In the ED pt was hypertensive up to 155/78 vitals were stable and WNL. Labs were grossly unremarkable and around baseline for pt. No leukocytosis. Stable H&H. No electrolyte abnormalities. Renal function WNL. Troponin negative. Lipid profile WNL. CT?of head negative for acute abnormality. CTA of head/neck negative for stenosis, aneurysm, or dissection. EKG demonstrated normal sinus rhythm without evidence of significant ST elevations or depressions, similar to prior. Pt was treated with aspirin. Pt will be admitted to the hospital for treatment further evaluation of left-sided deficits concerning for CVA vs complex migraine. Hospital course: 49-year-old Panamanian-speaking male with a past medical history significant for a reported myocardial infarction in [place] in 2005 and anxiety (not on any home medications) who presented to the emergency department with new onset left- sided numbness and tingling that began this morning. The patient will be admitted to the hospital for treatment and further evaluation of left-sided deficits, concerning for a cerebrovascular accident. On examination, he exhibited residual left-sided weakness (3/5 strength in the upper and lower extremities), along with numbness and tingling that has persisted for over [address] and CTA of the head were negative; however, subsequent MRI revealed an acute stroke in the right prefrontal gyrus. Neurology suspects a likely cardiac embolic source and recommends anticoagulation for at least 3 months, along with a hypercoagulable workup. An echocardiogram has been completed, and the patient will have an outpatient cardiology consultation for further testing, including consideration for a possible implantable device. There has been no evidence of atrial fibrillation during his hospitalization. He has been started on aspirin and apixaban. Physical therapy recommended acute inpatient rehabilitation, but both the patient and his mother declined. Unfortunately, arranging for outpatient or home physical therapy is not feasible at this time due to the patient not having a primary care physician. A new PCP appointment is scheduled for May 25 at 11:30 AM, at which time the PCP will arrange for the necessary services. His lipid profile is favorable with a total cholesterol of 119, LDL of 67, HDL of 43, and triglycerides of 46; therefore, he has been started on 20 mg of Lipitor. ?Syncopal episodes Pt reports episodes of ?blacking out? while speaking to friends Ongoing x6 months, episodes occur around every 2 weeks Treatment and additional workup as above Anxiety Not on home meds Time Attestation Discharge Coordination Time (in mins): 40 Quality: Safe Use of Opioids Does Pt have an Active Cancer Diagnosis on the Problem List?: No Quality: Stroke Does the patient have a stroke diagnosis?: Yes Reason for No Anti-thrombotic at DC: N/A - Med Ordered Reason for No Anticoagulant at DC: N/A - Med Ordered Reason Not Initiating IV-Tpa: Not indicated Reason for No Anti-thrombotic by Day Two: N/A - Med Ordered Reason for No Statin at DC: N/A - Med Ordered Physical Exam Vital Signs: Vital Signs: Last Vital Signs Temp 98.0 F 05/19/24 07:20 Pulse 71 05/19/24 09:11 Resp 18 05/19/24 07:20 BP 127/73 05/19/24 09:11 Pulse Ox 98 05/19/24 09:11 O2 Del Method Room Air 05/19/24 07:20 BMI result Body Mass Index 27.4 Const: Other: essentially unchanged from yesterday General: AOx3, no acute distress Resp: CTA bilaterally CVS: S1, S2, RRR GI: +BS, NT, no distention Skin: Warm, dry Neuro: Sensation to light touch diminished in left lower extremity, otherwise intact. Left upper and lower extremity 3/5 strength, 5/5 strength in right upper and lower extremities. No facial droop noted. Pt's speech full and fluent. No dysarthria or difficulty word finding noted. Visual hunter full. Negative pronator drift. Extremities: No edema Psych: Appropriate affect DS: Data Data Completed and Pending Labs on day of discharge: Laboratory Results - last 24 hr 05/16/24 16:10 Whole Blood PT 13.1 Whole Blood INR 1.1 Discharge Plan Discharge Anticipated Discharge Date/Time: 05/19/24 09:33 Patient Disposition: Home, Self-Care Discharge Diagnosis: Acute stroke Referrals: Physician,Unknown J [Primary Care Provider] - 1 Week Discharge Medications: New atorvastatin 20 mg Tablet 20 mg PO DAILY Qty: 90 0RF aspirin 81 mg Tablet,Delayed Release (Dr/Ec) 81 mg PO DAILY Qty: 180 0RF Eliquis 5 mg Tablet 5 mg PO BID Qty: 180 0RF nicotine 14 mg/24 hr Patch 24 Hour 14 mg transdermal DAILY Qty: 60 0RF Discharge Orders: Discharge Order (Routine); Ordered 05/19/24 Ordered By: Xavi Mccord Diet: Advance to usual diet Activity on Discharge: As tolerated Stand Alone Forms: Patient Portal Discharge page Print Language: Panamanian Care Plan Goals: recovery from stroke Health Concerns: stroke Plan of Treatment: take Aspirin , eliquis and Lipitor as directed and follow up with your Do[facility] as scheduled on May 25 at 11:30 Cardiology office will call you for follow up Stop smoking, use nicotine patch --do not smoke and using patch at the same time Assessment: see abov
--- NOTE | 2024-05-19 10:52 | MHC.STROKE ---
Met with patient in room 443 Pt awake, alert and oriented x 4. Pt sitting up in chair, moving all extremities Speaking in full clear sentences. Stroke Education provided to patient. Pamphlet given in scottish. Risk factors discussed including medical history, medications, diet, social behaviors (smoking) and activity. Smoking cessation education provided. Will ask hospitalist to send Nicotine patches upon discharge. All questions answered. Information Systems Supervisor utilized for education. Will continue to assist as needed.
[2024-05-19 10:54] LABS: INTERNATIONAL NORM RATIO 1.1 (0.9-1.1); Prothrombin Time 12.6 SEC (10.9-12.4)
[2024-05-19 10:56] LABS: Partial Thromboplastin Time 38.9 SEC (26.0-36.8)
--- NOTE | 2024-05-19 12:08 | P.F2F_ITS ---
Service Date Service Date: 05/19/24 Encounter Date of encounter: 05/19/24 Reasons for Services Signs and symptoms assessed: weakness from stroke Reason for longterm: neurological assessment, medication management and teach disease management Reason for physical therapy: home safety and mobility, therapeutic exercises and ADL training Reason for occupational therapy: home safety and mobility, therapeutic exercises, gait/transfer training and assess need for DME Homebound: Leaving the home is medically contraindicated at this time without the asist of a device and/or another person due th the listed conditions above and below. Reason homebound: unsteady gait / fall risk, leg weakness and unable to drive Homebound supporting statement: Fall risks due to unsteady gait and and left sided weakness from acute stroke and some visual issues as well and therefore needs the assistance of anohter person Certification: Based on the above findings, I certify that this patient is confined to the home and needs intermittent longterm care, physical therapy and/or speech therapy, or continues to need occupational therapy. The patient is under my care, and I have initiated the establishment of the plan of care. The patient will be followed by a physician who will periodically review the plan of care. Time Spent With Patient Time: Total time managing care of this patient today ____ minutes.
[2024-05-20 17:09] LABS: Homocysteine 9.4 umol/L (<11.4)
[2024-05-20 22:08] LABS: Cardiolipin IgG Ab <2.0 GPL-U/mL; Cardiolipin IgM Ab <2.0 MPL-U/mL
[2024-05-22 06:59] LABS: Hexagonal Phase Neutralization Negative (Negative); PTT (LAC) Screen 43 sec (<=40)
[2024-05-23 00:48] LABS: Protein C Activity 75 % normal (70-180); Protein S Activity rflx Tot&Fr 96 % normal (70-150)
[2024-05-24 00:18] LABS: Anti-Thrombin III Antigen 94 % normal (80-120)
[2024-05-26 14:53] LABS: Factor V Leiden NEGATIVE
[2024-05-26 17:33] LABS: Prothrombin 20210A NEGATIVE
== END 2024-05-19 13:33 | disposition home health service (06) | DRG 45 ==
LOC: HO.ED 17:36 → HO.EDOVER 19:36 → HO.IMC 05-17 07:43
PROVIDERS: Nurse Practitioner Family; Admitting Provider Student in an Organized Health Care Education/Training Program; Emergency Provider Emergency Medicine; PCP Student in an Organized Health Care Education/Training Program; Visit Provider Internal Medicine
DX: I63.49 Cerebral infarction due to embolism of other cerebral artery (principal); G81.94 Hemiplegia, unspecified affecting left nondominant side; R55 Syncope and collapse; R29.701 NIHSS score 1; F17.210 Nicotine dependence, cigarettes, uncomplicated; F41.9 Anxiety disorder, unspecified; Z71.6 Tobacco abuse counseling
CPT/HCPCS: 36415; 70450; 70496; 70498; 70551; 80048; 80061; 80307; 81240; 81241; 82947; 83090; 84484; 85025; 85301; 85302; 85303; 85306; 85597; 85598; 85610; 85613; 85730; 86147; 93005; 93306; 97116; 97162; 97166; 97530; 99285; J1650; Q9957

== ENCOUNTER → 2024-05-16 16:00 | Outpatient (BNV) | payer MEDICAID, SELFPAY | PROVIDERS: Emergency Provider Emergency Medicine; Visit Provider Radiology Diagnostic Radiology | DX: I63.9 Cerebral infarction, unspecified (principal); R90.89 Other abnormal findings on diagnostic imaging of central nervous system; I63.521 Cerebral infarction due to unspecified occlusion or stenosis of right anterior cerebral artery | CPT/HCPCS: 70450; 70496; 70498; 70551 ==

== ENCOUNTER → 2024-05-16 16:00 | Outpatient (BNV) | payer MEDICAID, SELFPAY | PROVIDERS: Admitting Provider Student in an Organized Health Care Education/Training Program; Emergency Provider Emergency Medicine; Visit Provider Internal Medicine Cardiovascular Disease | DX: I63.9 Cerebral infarction, unspecified (principal) | CPT/HCPCS: 93010 ==

== ENCOUNTER 2024-05-16 19:18 | Outpatient (BNV) | payer MEDICAID, SELFPAY | END 2024-05-19 07:00 | PROVIDERS: Admitting Provider Student in an Organized Health Care Education/Training Program; Emergency Provider Emergency Medicine; Visit Provider Internal Medicine Cardiovascular Disease | DX: I35.1 Nonrheumatic aortic (valve) insufficiency (principal) | CPT/HCPCS: 93306 ==

== ENCOUNTER → 2024-05-16 19:18 | Outpatient (BNV) | payer MEDICAID, SELFPAY | PROVIDERS: Admitting Provider Student in an Organized Health Care Education/Training Program; Emergency Provider Emergency Medicine; Visit Provider Psychiatry & Neurology Neurology | DX: I63.9 Cerebral infarction, unspecified (principal) | CPT/HCPCS: 99223 ==

== ENCOUNTER → 2024-05-16 19:18 | Outpatient (BNV) | payer MEDICAID, SELFPAY | PROVIDERS: Admitting Provider Student in an Organized Health Care Education/Training Program; Emergency Provider Emergency Medicine; Visit Provider Student in an Organized Health Care Education/Training Program | DX: R53.1 Weakness (principal) | CPT/HCPCS: 99222 ==

== ENCOUNTER 2024-09-17 18:36 | Inpatient (IN) | payer MEDICAID, SELFPAY ==
--- NOTE | ~2024-09-17 | MR_ITS ---
EXAMINATION: MR BRAIN WITHOUT CONTRAST CLINICAL INFORMATION: Left-sided weakness. COMPARISON: May 16, 2024 demonstrated acute stroke/ischemia, right prefrontal gyrus. TECHNIQUE: MRI of the brain was obtained using routine sequences without contrast. FINDINGS: No restricted diffusion. No acute intracranial hemorrhage, mass effect, midline shift, hydrocephalus or herniation. Multifocal patchy and punctate deep periventricular white matter and subcortical white matter hyperintense T2 FLAIR signal involving centrum semiovale and lemos radiata more pronounced in the right cingulate gyrus. Old lacunar infarct, anterior right midline body corpus callosum and left ventral kristina. Hyperintense T2 FLAIR signal in the midline of the mid kristina likely wallerian degeneration. Old lacunar infarct, left thalamus. Posterior cranial fossa contents demonstrated no acute intracranial hemorrhage or restriction. Prominent vascular morphology pattern with susceptibility in the left middle frontal gyrus. Flow-void signal within the main cerebral vessels is normal. Sellar/suprasellar region demonstrated no gross signal abnormality or masses. Craniocervical junction demonstrates normal position of the cerebellar tonsils. There is a 1 cm crescent-shaped fat signal characteristic lesion in the superior right midline frontal soft tissue scalp. MR/MR head/brain wo con IMPRESSION: No acute stroke/ischemia. 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 Electronically signed by: Mina Jacob MD 09/18/2024 02:52 PM EDT
--- NOTE | ~2024-09-17 | CT_ITS ---
CLINICAL HISTORY: Left sided weakness CT Head without contrast. CT angiography head and neck with contrast. 3D Postprocessing. Comparison: MR - MR HEAD/BRAIN WO CON - 05/16/24 21:02 EDT Findings: HEAD CT: No intra-axial mass, midline shift, hydrocephalus, or acute hemorrhage. No significant atrophy-like change or white matter disease. There is no sinus or mastoid fluid. The orbits are within normal limits. There is no acute fracture. HEAD AND NECK CTA: Aortic arch and cervical great vessels are patent. Intracranial arteries are patent. No aneurysm, dissection, or occlusion. No abnormal intracranial enhancement. The visualized thyroid gland is unremarkable. No cervical mass or fluid collection. Lung apices clear. No acute fracture. IMPRESSION: 1. No acute intracranial finding. Patent head and neck CT angiogram. This document has been electronically signed by: Ramone Bah MD on 09/17/2024 23:15:44
--- NOTE | ~2024-09-17 | MR_ITS ---
CLINICAL HISTORY: left leg weakness MR cervical spine without gadolinium Comparison: None Findings: Visualized intracranial contents are unremarkable. Soft tissues of the neck are normal. Cervical cord normal size and signal. There are a few incompletely visualized high T2 intensity foci within the visualized kristina, largest of which is in the left paramedian kristina measuring roughly 5 mm. Loss of normal cervical lordosis. No acute fractures or pathologic bone lesions. Mild reactive signal throughout the endplates of the cervical spine. C2-C3:Mild disc desiccation. Mild facet and uncovertebral hypertrophy. No significant canal stenosis. Mild bilateral foraminal stenosis. C3-C4:Mild disc desiccation and diffuse disc bulge. Mild facet and uncovertebral hypertrophy bilaterally. Mild canal stenosis. Mild bilateral foraminal stenosis. C4-C5:Mild disc desiccation and diffuse disc bulge. Mild facet and uncovertebral hypertrophy bilaterally. Moderate canal stenosis. Moderate left and moderate to severe right foraminal stenosis. Mild right C5 nerve root compression. C5-C6:Mild disc desiccation and diffuse disc bulge. Mild facet and uncovertebral hypertrophy bilaterally. Mild canal stenosis. Moderate right and mild left foraminal stenosis. C6-C7:Mild disc desiccation and diffuse disc bulge. Mild facet and uncovertebral hypertrophy bilaterally. Mild canal stenosis. Mild bilateral foraminal stenosis. C7-T1:No significant canal or foraminal stenosis. IMPRESSION: 1. Multilevel degenerative disc and facet disease, as well as uncovertebral hypertrophy. 2. Multilevel canal stenoses, worst at C4-C5 where there is moderate canal stenosis. 3. Multilevel foraminal stenoses, worst at C4-C5 where there is associated intraforaminal nerve root compression. Correlation with clinical symptoms is recommended to assess relevance of this finding. 4. High signal intensity foci within the kristina. This could be further assessed with brain MRI with and without intravenous contrast. This document has been electronically signed by: Simon Scott MD on 09/19/2024 13:38:28
--- NOTE | ~2024-09-17 | XR_ITS ---
CLINICAL HISTORY: pain, tender 2 view left knee Comparison: None provided Findings: No fractures or dislocations. No significant arthritic change or erosions. No joint effusion. No radiopaque foreign body. IMPRESSION: 1. No acute findings. This document has been electronically signed by: Ramone Bah MD on 09/18/2024 01:10:29
[2024-09-17 19:20] VITALS: BP 132/82; PULSE 60; RESP 16; TEMP 36.2; O2SAT 100; BMI 23.7
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
--- NOTE | 2024-09-17 19:29 | ECG_ITS ---
Test Reason : weakness Blood Pressure : */* mmHG Vent. Rate : 56 BPM Atrial Rate : 56 BPM P-R Int : 158 ms QRS Dur : 88 ms QT Int : 410 ms P-R-T Axes : 71 -5 17 degrees QTcB Int : 395 ms Sinus bradycardia Possible Left atrial enlargement Septal infarct , age undetermined Abnormal ECG When compared with ECG of 16-May-2024 16:23, No significant change was found Referred By: Siri Centeno Electronically Signed By: Daniel Thomas
[2024-09-17 19:49] LABS: MANUAL DIFF FLAG NO
[2024-09-17 19:50] LABS: Hematocrit 42.2 % (42.0-52.0); Hemoglobin 14.9 g/dl (14.0-18.0); Imm Gran Abs Auto 0.01 X10*3/uL (0.00-0.03); Imm Gran Pct Auto 0.1 % (0.0-0.4); Lymphocytes Absolute Auto 3.4 X10*3/uL (1.2-4.9); Mean Corpuscular HGB Conc 35.3 g/dl (31.0-36.0); Mean Corpuscular Hemoglobin 32.7 pg (27.0-33.0); Mean Corpuscular Volume 92.7 fL (80.0-98.0); NRBC Abs Auto 0.000 X10*3/uL (0.0-0.012); NRBC Pct Auto 0.0 /100WBC (0.0-0.2); Platelet Count 187 X10*3/uL (160-400); Red Blood Count 4.55 X10*6/uL (4.60-5.80); White Blood Count 7.9 X10*3/uL (4.8-10.8)
[2024-09-17 19:57] LABS: INTERNATIONAL NORM RATIO 1.0 (0.9-1.1); Prothrombin Time 11.7 SEC (10.9-12.4)
[2024-09-17 20:00] LABS: Partial Thromboplastin Time 35.6 SEC (26.0-36.8)
--- OUTSIDE RECORDS SUMMARY | 2024-09-17 20:01 | XMS_ITS | Clinical Summary ---
Author Organization [facility] Address [address] [place] [address] Phone Care Team Providers Care Cooling Tower Technician Name Role Phone Grace Rodriguez Primary Care Provider [phone] Allergies No known active allergies Medications aspirin 81 mg EC tablet Take 1 tablet (81 mg total) by mouth 1 (one) time each day. Active atorvastatin (LIPITOR) 20 mg tablet Take 1 tablet (20 mg total) by mouth at bedtime. Active apixaban (ELIQUIS) 5 mg tablet Take 1 tablet (5 mg total) by mouth 2 (two) times a day. Active omeprazole (PriLOSEC) [address] capsule Take 1 capsule (20 mg total) by mouth 1 (one) time each day. Do not crush or chew. Active polyethylene glycol (Golytely) 236-22.74-6.74 -5.86 gram solution Take 4L by mouth once for one dose. May substitue any PEG. Starting at 6PM the night before your procedure drink 1 8oz glasses at your own pace until you complete half of the gallon. Finish 2nd half of the gallon 5 hours before your procedure. 4000 mL 5 Active bisacodyL (DULCOLAX) 5 mg EC tablet Take 2 tablets by mouth right before beginning bowel prep. See instructions provided by the office 2 tablet 5 Active Encounters Date Type Department Care Team Description 08/04/2024 Telephone Gastroenterology - [place] [address] [facility] [address] [facility] [address] [place] [address] Myriam Black LPN Anticoagulation (Colonoscopy on 08/31/[address] Harrington) from Last 3 Months Social History Tobacco Use Types Packs/Day Years Used Date Smoking Tobacco: Never Assessed Sex and Gender Information Value Date Recorded Sex Assigned at Not on file Legal Sex Male 11:16 AM EDT Gender Identity Male 08/20/2024 3:46 PM EDT Sexual Orientation Not on file Plan of Treatment Health Maintenance Due Date Last Done Comments DTaP,Tdap,and Td Vaccines (1 - Tdap) 1992 Hepatitis B Vaccines (1 of 3 - 19+ 3-dose series) 1992 Pneumococcal Vaccine: 50+ Ye ars (1 of 1 - PCV) 05/14/2023 Zoster Vaccines (1 of 2) 05/14/2023 COVID-19 Vaccine (1 - 2023-2 5 season) 2023 Depression Screening 02/26/2024 Cholesterol Screening (Lipid Panel) 05/18/2024 Colorectal Cancer Screening: Colonoscopy 05/18/2024 HIV Screening 05/18/2024 Hepatitis C Screening 05/18/2024 Social Influencers of Health Screening 05/18/2024 Influenza Vaccine (#1) 2024 HIB Vaccines Aged Out No longer eligi ble based on patient's age to complete this topic HPV Vaccines Aged Out No longer eligi ble based on patient's age to complete this topic Hepatitis A Vaccines Aged Out No long er eligible based on patient's age to complete this topic IPV Vaccines Aged Out No longer eligi ble based on patient's age to complete this topic MMR Vaccines Aged Out No longer eligi ble based on patient's age to complete this topic Meningococcal ACWY Vaccine Aged Out N o longer eligible based on patient's age to complete this topic Meningococcal B Vaccine Aged Out No l onger eligible based on patient's age to complete this topic RSV Immunization Patients Un hussain 20 months Aged Out No longer eligible b ased on patient's age to complete this topic Varicella Vaccines Aged Out No longer eligible based on patient's age to complete this topic Insurance MEDICAID - [place] Care Teams Cooling Tower Technician Relationship Specialty Start Date End Date Grace Rodriguez PA [facility] [place] [address] PCP - General 06/01/24
[2024-09-17 20:05] LABS: Alanine Aminotransferase 23 U/L (0-40); Albumin Level 4.3 g/dL (3.5-5.0); Alkaline Phosphatase 151 U/L (39-117); Anion Gap 13 (12-20); Aspartate Amino Transferase 22 U/L (5-37); Blood Urea Nitrogen 13 mg/dL (9-16); Calcium 8.9 mg/dL (8.4-10.2); Carbon Dioxide 23 mmol/L (22-29); Chloride 110 mmol/L (96-108); Creatinine Clr Calc Pharmacy 103.1; Estimated Glomerular Filt Rate > 60; Magnesium 2.2 mg/dL (1.6-2.6); Potassium 4.3 mmol/L (3.3-5.1); Sodium 142 mmol/L (135-145); Total Protein 6.5 g/dL (6.5-8.0)
[2024-09-17 20:10] VITALS: BP 133/82; PULSE 58; RESP 16; TEMP 36.9; O2SAT 99
[2024-09-17 20:13] LABS: Troponin-I High Sensitivity < 2.7 ng/L (<3.5-35.0)
[2024-09-17 20:27] LABS: Resp Syncy Virus RNA Qual PCR NEGATIVE (Negative); SARS COV2 PCR INHOUSE NEGATIVE (Negative)
[2024-09-17] MEDS: iohexoL 350 MG/ML 100 ML INFUS..BTL 70 ML IV (21:51)
[2024-09-17 22:10] VITALS: BP 132/87; PULSE 49; RESP 18; TEMP 36.6; O2SAT 98
--- NOTE | 2024-09-17 22:31 | PHA.MEDREC ---
Addendum entered by Doug Keen [facility] 09/17/24 22:38: MED REC CHECKED BY [facility] Original Note: Pharmacy Consult ? Medication Reconciliation Pharmacy has completed the medication reconciliation. Utilized network cable installer services, pt [place] Islander speaking but had Rx bottles on hand with fill dated from 08/26/24 filled at [facility].
[2024-09-18] VITALS (9 sets, daily range): BP systolic 110–147; BP diastolic 67–87; PULSE 52–67; RESP 14–18; TEMP 36.3–36.8; O2SAT 96–98; BMI 23.8
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
[2024-09-18 02:20] LABS: Appearance Urine Clear; Glucose Urine UA Negative (Negative); PH 6.5 (5.0-9.0); Specific Gravity - Urine >= 1.030 (1.005-1.025)
--- NOTE | 2024-09-18 07:00 | CA_ITS ---
Transthoracic Echocardiogram Patient (Last, First, Middle): Fabian Chance, Gender: Male Date of : 1975 Age: 49 Procedure Date: 09/18/2024 Procedure Type: Transthoracic Echocardiogram Location: 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 The visually estimated ejection fraction is between 60-65%. Diastolic function is normal for age. - There is normal right ventricular systolic function. Right ventricle [id number] dilated. - The left atrium is likely dilated. There is no evidence of a patent foramen ovale. The right atrium is mildly dilated. - There is mild dilatation of the sinuses of Valsalva measuring 4.20 cm and mild dilatation of the ascending aorta measuring 3.70 cm. Findings Left Ventricle Normal left ventricular size, thickness, systolic function, and wall motion. The visually estimated ejection fraction is between 60-65%. Diastolic function is normal for age. Right Ventricle There is normal right ventricular systolic function. Right ventricle mild-to moderately dilated. Atria The left atrium is likely dilated. There is no evidence of a patent foramen ovale. The right atrium is mildly dilated. Aortic Valve There is a normal trileaflet aortic valve. There is no aortic valve stenosis. There is trace (trivial) aortic valve regurgitation. Mitral Valve The mitral valve appears normal. There is trace mitral valve regurgitation. There is no mitral valve stenosis. Pulmonic Valve The pulmonic valve is likely normal. Tricuspid Valve Normal tricuspid valve structure. There is no tricuspid valve regurgitation. Normal right atrial pressure. There is no evidence of pulmonary hypertension. Great Vessels There is mild dilatation of the sinuses of Valsalva measuring 4.20 cm and mild dilatation of the ascending aorta measuring 3.70 cm. The visualized portions of the pulmonary artery and branches are normal. Venous The inferior vena cava is normal in size and collapses greater than 50% with inspiration. Pericardium/Pleural There is no evidence of pericardial effusion. Prior Study Comparison Changes noted compared to prior study dated: 05/19/2024. Right ventricle mild to moderately dilated. Measurements 2D Linear Measurements IVSd: 0.86 0.6-0.9/0.6-1.0 cm LVIDd: 4.73 3.9-5.3/4.2-5.9 cm LVIDd Index: 2.35 2.4-3.2/2.2-3.1 cm/m2 LVIDs: 2.36 2.0-3.6 cm LVPWd: 0.95 0.7-1.1 cm LA Diam: 3.70 2.7-3.8/3.0-4.0 cm LAIDs Index: 1.84 1.5-2.3 cm/m2 LV Mass: 180.46 67-162/88-224 g LV Mass Index: 89.78 43-95/49-115 g/m2 LVOT Diam: 2.10 3.0+(-)1.3 cm 2D Systolic Function EF 4C: 67.40 >55% EF 2C: 66.80 >55% EF BiP: 67.20 >55% Mitral Valve MV Pk E: 0.57 MV PK A: 0.41 MV Decel Time: 454.00 E/A: 1.40 E'Lateral: 10.60 E'Medial: 10.40 E/E' Med: 5.50 E/E' Lat: 5.40 PHT: 133.00 MVA PHT: 1.65 Decel Craven: 1.27 Aortic Valve AoV Pk Saulo: 1.39 AoV Mn Saulo: 0.92 AoV VTI: 0.30 AoV Pk Grad: 8.00 Aov Mn Grad: 4.00 TOM Cont.VTI: 2.70 LVOT LVOT Pk Saulo: 1.13 LVOT Mn Saulo: 0.73 LVOT VTI: 0.23 LVOT Pk Grad: 5.00 LVOT Mn Grad: 3.00 LVOT Diam: 2.10 LVOT Area: 3.46 Diastolic Function MV Pk E: 0.57 MV Pk A: 0.41 E/A: 1.40 E'Medial: 10.40 E/E' Med: 5.50 E' Laterial: 10.60 E/E' Lat: 5.40 Right Ventricle TAPSE (mm): 3.25 TVS' Saulo: 15.40 Tricuspid Valve TR Pk Saulo: 1.77 TR Pk Grad: 13.00 RA Press: 3.00 RVSP: 16.00 Great Vessels Aorta Sinus of Valsalva: 4.20 2.0-3.5 cm Ao Asc: 3.70 2.1-3.4 cm Ao Arch: 3.40 Pulmonary Valve PV Pk Saulo: 1.02 Peak PV Grad: 4.00 Updated in Other Vendor System with Status of Final Daniel Thomas MD electronically signed on 09/19/2024 12:04:34 PM with status of Final
[2024-09-18 07:25] LABS: Hematocrit 42.1 % (42.0-52.0); Hemoglobin 14.9 g/dl (14.0-18.0); Imm Gran Abs Auto 0.03 X10*3/uL (0.00-0.03); Imm Gran Pct Auto 0.3 % (0.0-0.4); Lymphocytes Absolute Auto 0.7 X10*3/uL (1.2-4.9); MANUAL DIFF FLAG SCAN; Mean Corpuscular HGB Conc 35.4 g/dl (31.0-36.0); Mean Corpuscular Hemoglobin 32.5 pg (27.0-33.0); Mean Corpuscular Volume 91.7 fL (80.0-98.0); NRBC Abs Auto 0.000 X10*3/uL (0.0-0.012); NRBC Pct Auto 0.0 /100WBC (0.0-0.2); Platelet Count 188 X10*3/uL (160-400); Red Blood Count 4.59 X10*6/uL (4.60-5.80); SCAN SMEAR FLAG 1; White Blood Count 9.2 X10*3/uL (4.8-10.8)
[2024-09-18 07:50] LABS: Anion Gap 11 (12-20); Blood Urea Nitrogen 13 mg/dL (9-16); Calcium 8.8 mg/dL (8.4-10.2); Carbon Dioxide 25 mmol/L (22-29); Chloride 109 mmol/L (96-108); Cholesterol 92 mg/dL (<200); Creatinine Clr Calc Pharmacy 115.5; Estimated Glomerular Filt Rate > 60; HDL Cholesterol 41 mg/dL (>40); Potassium 3.7 mmol/L (3.3-5.1); Sodium 141 mmol/L (135-145); Triglycerides 28 mg/dL (<150)
[2024-09-18] MEDS: 0.9 % Sodium Chloride Flush 3 ML SYRINGE IVFLUSH ×3 (08:02→23:55)
[2024-09-18] MEDS: Nicotine 21 MG PATCH.TD24 TRANSDERMA (08:02)
[2024-09-18] MEDS: Aspirin Enteric Coated 81 MG TABLET.DR PO (11:37)
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
--- NOTE | 2024-09-18 15:20 | P.PNIM_ITS ---
Subjective Subjective Date of Service: 09/18/24 Interval History: Seen and examined this morning Follow-up left-sided weakness History obtained with the assistance of a certified court/medical interpreter Patient admitted in April with the same symptoms, patient vague historian unclear what changed to happen re present in the emergency department he does report knee pain Review of Systems Review of Systems: Yes all other systems are reviewed and are negative Constitutional Constitutional: Denies chills and Denies fever(s) Cardiovascular Cardiovascular: Denies chest pain Physical Exam 2 Vital Signs: Vital Signs: Last Vital Signs Temp 97.6 F 09/18/24 11:28 Pulse 65 09/18/24 14:20 Resp 18 09/18/24 11:28 BP 120/79 09/18/24 14:20 Pulse Ox 96 09/18/24 14:20 O2 Del Method Room Air 09/18/24 11:28 BMI result Body Mass Index 23.8 Const: General: alert and awake Orientation/consciousness: patient oriented x3 Neuro: Other: Speech clear, face symmetrical, no nystagmus, extraocular movements intact Left upper extremity hand grasp 4/5; patient reports inability to lift left lower extremity although this appears somewhat related to left knee pain, poor effort General: patient oriented x3 Objective Data Active Medications Acetaminophen (Acetaminophen 325 Mg Tablet) 650 mg PO Q6H PRN PRN Reason: Pain, Mild 1-3,fever,headache Apixaban (Apixaban 5 Mg Tablet) 5 mg PO BID [facility] Last Admin: 09/18/24 11:37 Dose: 5 mg Documented By: SAVANNAH Aspirin (Aspirin Enteric Coated 81 Mg Tablet.) 81 mg PO DAILY [facility] Last Admin: 09/18/24 11:37 Dose: 81 mg Documented By: SAVANNAH Atorvastatin Calcium (Atorvastatin Calcium 20 Mg Tablet) 20 mg PO DAILY [facility] Last Admin: 09/18/24 11:37 Dose: 20 mg Documented By: SAVANNAH Calcium Carbonate (Calcium Carbonate 750 Mg Tab.Chew) 750 mg PO Q4H PRN PRN Reason: Heartburn Magnesium Hydroxide (Milk Of Magnesia 30 Ml Oral.Susp) 30 ml PO DAILY PRN PRN Reason: Constipation Melatonin (Melatonin 3 Mg Tablet) 6 mg PO BEDTIME PRN PRN Reason: Insomnia Nicotine (Nicotine 21 Mg Patch.Td24) 21 mg TRANSDERMA DAILY [facility] Last Admin: 09/18/24 08:02 Dose: 21 mg Documented By: SAVANNAH Ondansetron HCl (Ondansetron Hcl 4 Mg/2 Ml Vial) 4 mg IVPUSH Q8H PRN PRN Reason: Nausea and Vomiting Polyethylene Glycol (Polyethylene Glycol 3350 17 Gm Powd.Pack) 17 gm PO DAILY PRN PRN Reason: Constipation Senna (Sennosides 8.6 Mg Tablet) 17.2 mg PO BEDTIME [facility] Sodium Chloride (0.9 % Sodium Chloride Flush 3 Ml Syringe) 3 ml IVFLUSH QSHIFT [facility] Last Admin: 09/18/24 08:02 Dose: 3 ml Documented By: SAVANNAH Labs 09/18/24 07:04 09/18/24 07:04 Labs: Laboratory Results - last 24 hr 09/17/24 09/17/24 09/18/24 19:39 19:40 02:11 MCV 92.7 MCH 32.7 MCHC 35.3 RDW 13.2 Plt Count 187 MPV 10.3 Immature Gran % (Auto) 0.1 Neut % (Auto) 42.8 L Lymph % (Auto) 43.3 H [place] % (Auto) 9.9 Eos % (Auto) 3.4 Baso % (Auto) 0.5 Lymph # (Auto) 3.4 [place] # (Auto) 0.8 Eos # (Auto) 0.3 Baso # (Auto) 0.0 Abs Immat Gran (auto) 0.01 Absolute Neuts (auto) 3.4 Absolute Nucleated RBC 0.000 Nucleated RBC % (auto) 0.0 Smear Tech's Comments PT 11.7 INR 1.0 APTT 35.6 Anion Gap 13 Estim Creat Clear Calc 103.1 Estimated GFR > 60 Random Glucose 71 Calcium 8.9 Magnesium 2.2 Total Bilirubin 0.7 Direct Bilirubin 0.3 AST 22 ALT 23 Alkaline Phosphatase 151 H Total Protein 6.5 Albumin 4.3 Triglycerides Cholesterol LDL Cholesterol, Calc HDL Cholesterol TSH Urine Color Yellow Urine Appearance Clear Urine pH 6.5 Ur Specific [place] >= 1.030 H Urine Protein Negative Urine Glucose (UA) Negative Urine Ketones Negative Urine Blood Negative Urine Nitrite Negative Ur Leukocyte Esterase Negative Influenza Type A (PCR) NEGATIVE Influenza Type B (PCR) NEGATIVE RSV RNA Qual (PCR) NEGATIVE SARS-CoV-2 RNA (RT-PCR) NEGATIVE 09/18/24 07:04 MCV 91.7 MCH 32.5 MCHC 35.4 RDW 13.0 Plt Count 188 MPV 10.3 Immature Gran % (Auto) 0.3 Neut % (Auto) 90.1 H Lymph % (Auto) 8.0 L [place] % (Auto) 1.3 L Eos % (Auto) 0.1 Baso % (Auto) 0.2 Lymph # (Auto) 0.7 L [place] # (Auto) 0.1 Eos # (Auto) 0.0 Baso # (Auto) 0.0 Abs Immat Gran (auto) 0.03 Absolute Neuts (auto) 8.3 Absolute Nucleated RBC 0.000 Nucleated RBC % (auto) 0.0 Smear Tech's Comments VERIFIED PT INR APTT Anion Gap 11 L Estim Creat Clear Calc 115.5 Estimated GFR > 60 Random Glucose 133 H Calcium 8.8 Magnesium Total Bilirubin Direct Bilirubin AST ALT Alkaline Phosphatase Total Protein Albumin Triglycerides 28 Cholesterol 92 LDL Cholesterol, Calc 46 HDL Cholesterol 41 TSH 0.43 Urine Color Urine Appearance Urine pH Ur Specific [place] Urine Protein Urine Glucose (UA) Urine Ketones Urine Blood Urine Nitrite Ur Leukocyte Esterase Influenza Type A (PCR) Influenza Type B (PCR) RSV RNA Qual (PCR) SARS-CoV-2 RNA (RT-PCR) Assessment and Plan (1) Left-sided weakness: Status: Acute Plan Patient is a 49-year-old male Bahamian-speaking only with past medical history 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), [place], tachycardia (nonspecific) who was seen in the emergency department for left lower extremity and left upper extremity weakness. CT and CTA were negative for any acute findings. Left-sided weakness history of CVA April 2024 with presenting symptom of left-sided weakness No evidence of saddle anesthesia or cauda equina CT of the head and CTA were all negative Echo with bubble study ordered PT eval- rec acute rehab as per previous admission. Patient declined on last admission LDL 46 Continue statin, anticoagulation with Eliquis MRI of brain shows no acute stroke Cervical spine MRI pending Sinus bradycardia Asymptomatic, blood pressure stable Left knee pain Physical exam negative for any acute findings including warmth, erythema or swelling Left knee x-ray negative for any acute findings including effusion, fracture or dislocation Tobacco dependence Smoking cessation advised NRT Depression/anxiety/history of multiple suicide attempts Patient currently denies any SI or HI Patient does not take any antidepressants or psychotropic medications DVT prophylaxis: Eliquis Full Code status Disposition-PT recommends acute rehab Quality Stroke Does the patient have a stroke diagnosis?: No Reason for No Anti-thrombotic by Day Two: Contraindicated (Holding Eliquis until MRI is completed) VTE Prior VTE?: No VTE Risk Level:: Medical - moderate - high VTE Device Contraindication: N/A - Device Ordered VTE Drug Contraindication: N/A - Med Ordered
--- NOTE | 2024-09-18 15:45 | MHC.CM.PN ---
EMR REVIEWED, PT W/ACUTE CVA, CM MET W/PT VIA FIELD CONSULTANT, PT REPORTS HE LIVES W/HIS MOTHER, IS INDEP W/CARE AT BASELINE, DENIES USE OF DME/SERVICES, AND PT'S GOAL WAS TO DC HOME HOWEVER AGREEABLE TO ACUTE REHAB, REFERRAL PLACED AND CERVICAL SPINE MRI PENDING PER NEURO. PT DECLINES TO COMPLETE A HCP AT THIS TIME, PCP ON FILE VERIFIED.
[2024-09-19 03:36] VITALS: BP 121/71; PULSE 55; RESP 16; TEMP 36.2; O2SAT 98
[2024-09-19 07:12] VITALS: BP 123/79; PULSE 53; RESP 16; TEMP 36.7; O2SAT 98
[2024-09-19] MEDS: Aspirin Enteric Coated 81 MG TABLET.DR PO (09:08)
[2024-09-19] MEDS: 0.9 % Sodium Chloride Flush 3 ML SYRINGE IVFLUSH ×3 (09:08→20:32)
[2024-09-19] MEDS: Nicotine 21 MG PATCH.TD24 TRANSDERMA (09:09)
[2024-09-19 10:54] VITALS: BP 127/71; PULSE 52; RESP 18; TEMP 36.6; O2SAT 99
--- NOTE | 2024-09-19 11:35 | MHC.CM.PN ---
Addendum entered by Carmen Nix 09/19/24 11:55: This CM just saw CM note from yesterday in chart that says that pt. is willing to go to [facility] and referrals were made. 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 HCP discussed, he will complete form here and it will be added to his chart. Pt. does not use home health services or DME. PT rec. [facility], CM asked pt. if he is willing to go to rehab and he said no. Family to transport him home at DC, DCP: home with services. CM to follow for DC needs.
[2024-09-19 15:05] VITALS: BP 113/71; PULSE 56; RESP 18; TEMP 36.5; O2SAT 99
--- NOTE | 2024-09-19 15:24 | P.PNIM_ITS ---
Subjective Subjective Date of Service: 09/19/24 Interval History: seen and examined this morning Follow-up left-sided weakness Left upper extremity strength appears nearly back to baseline. Left lower extremity strength improving Review of Systems Review of Systems: Yes all other systems are reviewed and are negative Constitutional Constitutional: Denies chills and Denies fever(s) Physical Exam 2 Vital Signs: Vital Signs: Last Vital Signs Temp 97.7 F 09/19/24 15:05 Pulse 56 09/19/24 15:05 Resp 18 09/19/24 15:05 BP 113/71 09/19/24 15:05 Pulse Ox 99 09/19/24 15:05 O2 Del Method Room Air 09/19/24 15:05 BMI result Body Mass Index 23.8 Const: General: alert and awake Orientation/consciousness: patient oriented x3 Neuro: Other: Speech clear, face symmetrical, no nystagmus, extraocular movements intact Left upper extremity hand grasp 4/5; able to lift left leg off bed and hold against gravity General: patient oriented x3 Objective Data Active Medications Acetaminophen (Acetaminophen 325 Mg Tablet) 650 mg PO Q6H PRN PRN Reason: Pain, Mild 1-3,fever,headache Apixaban (Apixaban 5 Mg Tablet) 5 mg PO BID [facility] Last Admin: 09/19/24 09:08 Dose: 5 mg Documented By: JOYCE Aspirin (Aspirin Enteric Coated 81 Mg Tablet.) 81 mg PO DAILY [facility] Last Admin: 09/19/24 09:08 Dose: 81 mg Documented By: JOYCE Atorvastatin Calcium (Atorvastatin Calcium 20 Mg Tablet) 20 mg PO DAILY [facility] Last Admin: 09/19/24 09:09 Dose: 20 mg Documented By: JOYCE Calcium Carbonate (Calcium Carbonate 750 Mg Tab.Chew) 750 mg PO Q4H PRN PRN Reason: Heartburn Magnesium Hydroxide (Milk Of Magnesia 30 Ml Oral.Susp) 30 ml PO DAILY PRN PRN Reason: Constipation Melatonin (Melatonin 3 Mg Tablet) 6 mg PO BEDTIME PRN PRN Reason: Insomnia Nicotine (Nicotine 21 Mg Patch.Td24) 21 mg TRANSDERMA DAILY [facility] Last Admin: 09/19/24 09:09 Dose: 21 mg Documented By: JOYCE Ondansetron HCl (Ondansetron Hcl 4 Mg/2 Ml Vial) 4 mg IVPUSH Q8H PRN PRN Reason: Nausea and Vomiting Polyethylene Glycol (Polyethylene Glycol 3350 17 Gm Powd.Pack) 17 gm PO DAILY PRN PRN Reason: Constipation Senna (Sennosides 8.6 Mg Tablet) 17.2 mg PO BEDTIME [facility] Last Admin: 09/18/24 20:51 Dose: 17.2 mg Documented By: COLE Sodium Chloride (0.9 % Sodium Chloride Flush 3 Ml Syringe) 3 ml IVFLUSH QSHIFT [facility] Last Admin: 09/19/24 09:08 Dose: 3 ml Documented By: JOYCE Labs 09/18/24 07:04 09/18/24 07:04 Assessment and Plan (1) Left-sided weakness: Status: Acute Plan Patient is a 49-year-old male Latvian-speaking only with past medical history 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), [place], tachycardia (nonspecific) who was seen in the emergency department for left lower extremity and left upper extremity weakness. CT and CTA were negative for any acute findings. Left-sided weakness history of CVA April 2024 with presenting symptom of left-sided weakness No evidence of saddle anesthesia or cauda equina CT of the head and CTA negative Echo with bubble study no pfo PT eval- rec acute rehab LDL 46 Continue statin, anticoagulation with Eliquis MRI of brain shows no acute stroke Cervical spine MRI pending Sinus bradycardia Asymptomatic, blood pressure stable Left knee pain Physical exam negative for any acute findings including warmth, erythema or swelling Left knee x-ray negative for any acute findings including effusion, fracture or dislocation Tobacco dependence Smoking cessation advised NRT Depression/anxiety/history of multiple suicide attempts Patient currently denies any SI or HI no on any baseline meds at this time DVT prophylaxis: Eliquis Full Code status Disposition-PT recommends acute rehab Quality Stroke Does the patient have a stroke diagnosis?: No Reason for No Anti-thrombotic by Day Two: Contraindicated (Holding Eliquis until MRI is completed) VTE Prior VTE?: No VTE Risk Level:: Medical - moderate - high VTE Device Contraindication: N/A - Device Ordered VTE Drug Contraindication: N/A - Med Ordered
[2024-09-19 19:36] VITALS: BP 117/78; PULSE 52; RESP 16; TEMP 36.3; O2SAT 97
[2024-09-19 23:17] VITALS: BP 133/80; PULSE 52; RESP 16; TEMP 36.6; O2SAT 98
[2024-09-20 03:06] VITALS: BP 132/78; PULSE 50; RESP 16; TEMP 36.2; O2SAT 99
[2024-09-20 06:56] VITALS: BP 133/58; PULSE 56; RESP 18; TEMP 36.9; O2SAT 98
[2024-09-20] MEDS: Aspirin Enteric Coated 81 MG TABLET.DR PO (09:04)
[2024-09-20] MEDS: Nicotine 21 MG PATCH.TD24 TRANSDERMA (09:04)
[2024-09-20] MEDS: 0.9 % Sodium Chloride Flush 3 ML SYRINGE IVFLUSH (09:04)
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
[2024-09-20 10:50] VITALS: BP 113/71; PULSE 61; RESP 16; TEMP 36.2; O2SAT 99
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
[2024-09-20 15:07] VITALS: BP 111/68; PULSE 59; RESP 16; TEMP 36.4; O2SAT 100
--- NOTE | 2024-09-20 15:09 | MHC.CM.PN ---
Pt. has been medically cleared to DC, MARLEN left message for his primary contact, Jennifer to call. Provider rec home care services, Pt. was unsure if he could have this in the home, he lives with close friend. CM call to ask if he can have services at home and about transport home, awaiting call back.
== END 2024-09-20 15:45 | disposition home health service (06) | DRG 347 ==
LOC: HO.ED 20:56 → HO.EDOVER 09-18 00:51 → HO.IMC 09-18 05:03
PROVIDERS: Nurse Practitioner Family; Physician Assistant Medical; Admitting Provider Student in an Organized Health Care Education/Training Program; Emergency Provider Emergency Medicine; PCP Student in an Organized Health Care Education/Training Program; Visit Provider Physician Assistant Medical
DX: M54.32 Sciatica, left side (principal); F32.A Depression, unspecified; F41.9 Anxiety disorder, unspecified; R00.1 Bradycardia, unspecified; Z20.822 Contact with and (suspected) exposure to COVID-19; Z91.51 Personal history of suicidal behavior; Z86.73 Personal history of transient ischemic attack (TIA), and cerebral infarction without residual deficits; Z79.01 Long term (current) use of anticoagulants; Z79.82 Long term (current) use of aspirin; Z79.899 Other long term (current) drug therapy
CPT/HCPCS: 36415; 70496; 70498; 70551; 72141; 73560; 80048; 80061; 80076; 81003; 83735; 84443; 84484; 85025; 85610; 85730; 87637; 93005; 93306; 97162; 99285; J1100; J1885; Q9957; Q9967

== ENCOUNTER → 2024-09-17 19:29 | Outpatient (BNV) | payer MEDICAID, SELFPAY | PROVIDERS: Emergency Provider Emergency Medicine; PCP Student in an Organized Health Care Education/Training Program; Visit Provider Radiology Diagnostic Radiology | DX: G81.00 Flaccid hemiplegia affecting unspecified side (principal); M25.562 Pain in left knee | CPT/HCPCS: 70496; 70498; 73560 ==

== ENCOUNTER → 2024-09-17 19:29 | Outpatient (BNV) | payer MEDICAID, SELFPAY | PROVIDERS: Admitting Provider Student in an Organized Health Care Education/Training Program; Emergency Provider Emergency Medicine; PCP Student in an Organized Health Care Education/Training Program; Visit Provider Internal Medicine Cardiovascular Disease | DX: R00.1 Bradycardia, unspecified (principal) | CPT/HCPCS: 93010 ==

== ENCOUNTER 2024-09-18 00:48 | Outpatient (BNV) | payer MEDICAID, SELFPAY | END 2024-09-19 12:00 | PROVIDERS: Admitting Provider Student in an Organized Health Care Education/Training Program; Emergency Provider Emergency Medicine; PCP Student in an Organized Health Care Education/Training Program; Visit Provider Radiology Diagnostic Radiology | DX: M47.812 Spondylosis without myelopathy or radiculopathy, cervical region (principal); M48.02 Spinal stenosis, cervical region | CPT/HCPCS: 72141 ==

== ENCOUNTER 2024-09-18 00:48 | Outpatient (BNV) | payer MEDICAID, SELFPAY | END 2024-09-18 07:00 | PROVIDERS: Admitting Provider Student in an Organized Health Care Education/Training Program; Emergency Provider Emergency Medicine; PCP Student in an Organized Health Care Education/Training Program; Visit Provider Internal Medicine Cardiovascular Disease | DX: I51.89 Other ill-defined heart diseases (principal) | CPT/HCPCS: 93306 ==

== ENCOUNTER 2024-09-18 00:48 | Outpatient (BNV) | payer MEDICAID, SELFPAY | END 2024-09-18 12:38 | PROVIDERS: Admitting Provider Student in an Organized Health Care Education/Training Program; Emergency Provider Emergency Medicine; PCP Student in an Organized Health Care Education/Training Program; Visit Provider Radiology Diagnostic Radiology | DX: R20.2 Paresthesia of skin (principal) | CPT/HCPCS: 70551 ==

== ENCOUNTER → 2024-09-18 00:48 | Outpatient (BNV) | payer MEDICAID, SELFPAY | PROVIDERS: Admitting Provider Student in an Organized Health Care Education/Training Program; Emergency Provider Emergency Medicine; PCP Student in an Organized Health Care Education/Training Program; Visit Provider Psychiatry & Neurology Neurology | DX: R53.1 Weakness (principal) | CPT/HCPCS: 99223; 99232 ==

== ENCOUNTER → 2024-09-18 00:48 | Outpatient (BNV) | payer MEDICAID, SELFPAY | PROVIDERS: Admitting Provider Student in an Organized Health Care Education/Training Program; Emergency Provider Emergency Medicine; PCP Student in an Organized Health Care Education/Training Program; Visit Provider Nurse Practitioner Family | DX: R53.1 Weakness (principal) | CPT/HCPCS: 99222; 99232 ==